=== PATIENT | male | born 1965 | race Caucasian/White ===

== ENCOUNTER 2018-02-21 20:51 | Inpatient (IN) | payer MEDICAID ==
--- NOTE | 2018-02-21 21:36 | C.PDOC ---
History Of Present Illness 52 y/o male presents to the ED complaining of feeling depressed. Also admits he felt suicidal this morning. Had plan to commit suicide by overdosing on heroin and cocaine, however did not attempt it. No other medical complaints at this time. On arrival patient appears calm and cooperative. Time Seen by Provider: 02/21/18 21:11 Chief Complaint (Nursing): Psychiatric Evaluation History Per: Patient History/Exam Limitations: no limitations Onset/Duration Of Symptoms: Hrs Current Symptoms Are (Timing): Still Present Suicide/Self Injury Attempted (Context): None Associated Symptoms: Depression, Suicidal Thoughts, Suicidal Plan Past Medical History Reviewed: Historical Data, Nursing Documentation, Vital Signs - Medical History PMH: Bipolar Disorder, Depression, Hepatitis Surgical History: No Surg Hx Family History: States: Unknown Family Hx - Social History Hx Tobacco Use: Yes Hx Alcohol Use: Yes Hx Substance Use: Yes - Immunization History Hx Tetanus Toxoid Vaccination: No Hx Influenza Vaccination: Yes Hx Pneumococcal Vaccination: No Review Of Systems Constitutional: Negative for: Fever, Chills Respiratory: Negative for: Shortness of Breath Gastrointestinal: Negative for: Vomiting, Abdominal Pain Psych: Positive for: Depression, Suicidal ideation (w/ plan) Physical Exam - Physical Exam Appears: Non-toxic, No Acute Distress Skin: Normal Color, Warm, Dry Head: Atraumatic, Normacephalic Eye(s): bilateral: Normal Inspection, PERRL, EOMI Oral Mucosa: Moist Neck: Normal ROM Chest: Symmetrical Cardiovascular: Rhythm Regular Respiratory: No Rales, No Rhonchi, No Wheezing Gastrointestinal/Abdominal: Soft, No Tenderness, No Distention Extremity: Bilateral: Atraumatic, Normal Color And Temperature Neurological/Psych: Oriented x3, Normal Speech ED Course And Treatment - Laboratory Results Result Diagrams: 02/21/18 21:37 02/21/18 21:37 Medical Decision Making Medical Decision Making: Initial Plan: --Bloodwork --UA, UDS --Placed on 1:1 obs --Awaiting crisis evaluation Patient is medically cleared Disposition - Disposition Disposition: HOSPITALIZED Disposition Time: 23:47 Condition: STABLE Forms: [facility] ([place]) - Clinical Impression Clinical Impression: Depression, Opiate addiction - Scribe Statement The provider has reviewed the documentation as recorded by the Alessandra Rojas Provider Attestation: All medical record entries made by the Miltonibkaren were at my direction and perso barbara dictated by me. I have reviewed the chart and agree that the record accurately reflects my personal performance of the history, physical exam, medical decision making, and the department course for this patient. I have also personally directed, reviewed, and agree with the discharge instructions and disposition. Decision To Admit - Pt Status Changed To: Hospital Disposition Of: Inpatient - Admit Certification Admit to Inpatient:: After my assessment, the patient will require hospitali zation for at least two midnights. This is because of the severity of symptoms shown, intensity of services needed, and/or the medical risk in this patient being treated as an outpatient. - InPatient: Physician Admission Certification: I certify that this patient requires 2 or more midnights of care for the following reason:: needs pysch - . Bed Request Type: Psychiatry Admitting Physician: Veronika Yi Patient Diagnosis: Depression, Opiate addiction
[2018-02-21 21:43] LABS: BASO % 0.3 % (0.0-2.0); EOS # 0.1 K/uL (0.0-0.7); EOS % 1.6 % (0.0-4.0); HEMOGLOBIN 13.4 g/dL (12.0-18.0); LYMPH # 1.5 K/uL (1.0-4.3); LYMPH % 17.2 % (20.0-40.0); MEAN CELL VOLUME 84.6 fL (80.0-94.0); MEAN CORPUSCULAR HEMOGLOBIN 29.2 pg (27.0-31.0); MEAN CORPUSCULAR HGB CONC 34.6 g/dL (33.0-37.0); MEAN PLATELET VOLUME 7.8 fL (7.2-11.7); MONO # 0.8 K/uL (0.0-0.8); MONO % 9.4 % (0.0-10.0); NEUT # 6.2 K/uL (1.8-7.0); NEUT % 71.5 % (50.0-75.0); RBC 4.59 Mil/uL (4.40-5.90); RED CELL DISTRIBUTION WIDTH 13.2 % (11.5-14.5); WHITE BLOOD COUNT 8.7 K/uL (4.8-10.8)
[2018-02-21 22:01] LABS: ACETAMINOPHEN < 10.0 ug/mL (10.0-30.0); ALB/GLOB RATIO 1.4 (1.0-2.1); ALBUMIN 4.3 g/dL (3.5-5.0); ALT/SGPT 47 U/L (21-72); AST/SGOT 35 U/L (17-59); BLOOD UREA NITROGEN 18 mg/dL (9-20); CALCIUM 9.4 mg/dl (8.6-10.4); GFR NON-AFRICAN AMERICAN > 60; SALICYLATE < 1.0 mg/dL 1
[2018-02-21] MEDS ORDERED: Potassium Chloride 20 mEq ER Tab PO STA (22:02)
[2018-02-21 22:43] LABS: SQUAMOUS EPITHIAL < 1 /hpf (0-5); URINE BILIRUBIN NEGATIVE (NEGATIVE); URINE BLOOD NEGATIVE (NEGATIVE); URINE CLARITY Clear (Clear); URINE COLOR Yellow (YELLOW); URINE GLUCOSE (UA) NORMAL (Normal); URINE LEUKOCYTE ESTERASE NEG Leu/uL (Negative); URINE PROTEIN NEGATIVE (NEGATIVE); URINE UROBILINOGEN NORMAL mg/dL (0.2-1.0)
[2018-02-21 22:51] LABS: BARBITURATES, UR NEGATIVE (NEGATIVE); BENZODIAZEPINES, UR NEGATIVE (NEGATIVE); PHENCYCLIDINE, UR NEGATIVE (NEGATIVE)
[2018-02-21 22:52] LABS: OPIATES, UR POSITIVE (NEGATIVE)
[2018-02-21] MEDS ORDERED: Potassium Chloride 20 mEq ER Tab PO ONE (23:20)
--- NOTE | 2018-02-22 01:37 | PCM.BM ---
<Bony Portillo - Last Filed: 02/22/18 01:34> Treatment Plan Problems - Problems identified on initial assessmt DEPRESSION Date Initiated: 02/22/18 Time Initiated: 01:00 Assessment reference: NA Status: Active SUBSTANCE ABUSE Date Initiated: 02/22/18 Time Initiated: 01:00 Assessment reference: NA Status: Active Treatment assets and liabiliti Patient Assests: adapts well, cooperative, self-reliant, ADL independent, physically healthy, negotiates basic needs Patient Liabilities: financial problems, poor support system, substance abuse, legal issue - Milieu Protocol Maintain good personal hygiene: daily Encourage regular showers, daily Remind patient to perform daily oral care, daily Assist patient to perform ADL's Maintain personal safety: every shift Educate patient to report safety concerns to staff, every shift Monitor environment for contraband/sharps Medication safety: Monitor for expected outcome, potential side effects: every shift, Assess barriers to learning: every shift, Assess readiness for medication education: every shift <Veronika Yi - Last Filed: 02/22/18 10:54> - Diagnosis (1) Mood disorder Status: Acute Interventions: 02/22/18 10:56 * Assess/adjust medications daily and /or as needed * See patient on an individual basis 7x/week to assess level of manic behaviors and stability * Discuss risks, benefits, side effects and alternatives of medications * (2) Opiate addiction Status: Acute Interventions: 02/22/18 10:56 * Assess 7x/week regarding severity of withdrawal * Educate regarding risks, benefits, side effects and alternatives of m edications * Use Motivational Interviewing for abstinence * Use CBT for relapse prevention * Medication management for withdrawal symptoms * Encourage medication assisted treatment * <Anastacia Groves - Last Filed: 02/22/18 11:28> Family Contact Family involvement: Famliy/SO not involved - Goals for Treatment Patient goals for treatment: "I don't know." Discharge/Continuing Care - Education Needs Education Needs: Patient Medication, Patient Coping Skills - Discharge Discharge Criteria: Tolerates medication w/o severe side effects, No longer exhibiting s/s of withdrawal, Reduction of target symptoms Discharge to:: Home - Treatment Team Participation Discussed with Family/SO: No Was Patient/Family/SO present at Treatment Team Meeting: Yes
[2018-02-22] MEDS ORDERED: Aluminum Hydroxide/Magnesium Hydroxide Susp (30 mL) PO PRN (10:23)
[2018-02-22] MEDS ORDERED: Benzocaine/Menthol (Cepacol) Lozenge PO PRN (10:23)
--- NOTE | 2018-02-22 10:23 | PCM.PSYCH ---
Initial Psychiatric Evaluation - Initial Psychiatric Evaluation Type of Admission: Voluntary Legal Status: Capacity Chief Complaint (in patient's own words): I was feeling increasingly depressed and suicidal.' History of Present Illness and Precipitating Events: Pt is a 52 year old male who is single and with one child who is 33 years old. 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 Pt lives in [place] with his friends. Pt came to [facility] complaining of feeling depressed and suicidal. Pt states that he used heroin and cocaine yesterday morning which resulted in a headache and suicidal ideations. He wanted to overdose but was on his last 4 bags of heroin which caused him to come in to the hospital. Pt uses 2 bundles of heroin a day by injection. He started when he was 27 years old but it became regular at 34 years old. He also uses 1g of cocaine a day. He started using cocaine 1 year ago but it became daily 3 months ago. His last use was the night before admission. Pt uses 2mg of Xanax twice a week. He has been taking benzodiazepines for 12 years and his last use was Sunday. Pt drinks 2-3 cans of beer or a pint of whiskey 3-4 times a week. His last drink was the night before admission. He has been smoking 1 pack of cigarettes a day since he was 17 years old. Pt denies being on methadone maintenance in the past and buys methadone off the street. Pt has undergone detoxification 3 times in the past and the last time was in 2014. He has been in rehabilitation 1 time in 2011. He was hospitalized for a psychiatric condition one time in 2008 for depression. His sleep and appetite are intact but he states he has lost interest in socializing and has been secluding himself for a few months. He has a little trouble concentrating and is feeling guilty but not to the point of being overwhelmed. Though he was suicidal yesterday he does not have suicidal ideations currently. He has had 2 suicide attempts in the past by overdose and the last one was in 2008. Pt denies having a plan currently but only when he is using drugs. Pt denies homicidal ideations or hallucinations. Pt has a history of bipolar disorder which was diagnosed in 2008. He describes a typical manic episode as having a lot of energy, being talkative, and wanting to do a lot of things like drawing. These episodes would last 2-3 days. He states that the withdrawal symptoms are beginning due to the yawning, watery eyes, and runny nose. Though he is not feeling them now he soon will feel fever, sweaty, vomiting, body aches, and anxiety. Past medical history: Hepatitis Allergies: Shellfish Surgical history: Denies Legal history: Incarcerated 3 times in the past Family psychiatric history: Denies Psychiatric history: Bipolar d/o, depressive d/o unspecified Current Medications: Active Medications Generic Name Dose Route Start Last Admin Trade Name Freq PRN Reason Stop Dose Admin Hydroxyzine HCl 50 mg 02/22/18 01:31 Atarax PO Q6 PRN Anxiety Nicotine 1 patch 02/22/18 10:00 Nicoderm Cq TD DAILY MARION Pneumococcal Polyvalent Vaccine 0.5 ml 02/23/18 10:00 Pneumovax 23 Vaccine IM 02/23/18 10:01 .ONCE ONE Trazodone HCl 50 mg 02/22/18 01:16 02/22/18 01:27 Desyrel PO 50 mg HS PRN Administration Sleep Past Psychiatric History - Past Psychiatric History Previous Treatment History: Inpatient Pertinent Medical Hx (Current Medical&Sleep Prob, Allergies): Allergies Allergy/AdvReac Type Severity Reaction Status Date / Time shellfish Allergy Uncoded 02/21/18 21:09 Sulfamethoxazole/Trimethoprim [Bactrim DS 800 mg-160 mg] 1 tab PO BID #14 tab 04/20/16 traMADol [Ultram] 50 mg PO Q8 #20 tab 04/20/16 Review of Systems - Review of Systems All systems: reviewed and no additional remarkable complaints except - Psychiatric Psychiatric: Anxiety, Irritability, Suicidal Ideation Mental Status Examination - Personal Presentation Personal Presentation: Looks stated age - Affect Affect: Constricted, Depressed - Motor Activity Motor Activity: Calm - Reliability in Providing Information Reliability in Providing Information: Fair - Speech Speech: Organized - Mood Mood: Depressed, Anxious - Formal Thought Process Formal Thought Process: No Impairment - Obsessions/Compulsions Obsessions: No Compulsions: No - Cognitive Functions Orientation: Person, Place, Situation, Time Sensorium: Alert Attention/Concentration: Attentive Abstract Thinking: Garner Estimate of Intelligence: Below average Judgement: Imparied, as evidence by: Poor judgement, Imparied, as evidence by: Lack of insight into illness - Risk Risk: Suicidal, Withdrawal, Diminished functioning - Limitations Limitations: Living alone DSM 5 DX - DSM 5 DSM 5 Diagnosis: Major depressive disorder recurrent severe without psychotic features Alcohol use disorder severe Opioid use disorder severe Opioid withdrawal - Recommended/Plan of Treatment Treatment Recommendations and Plan of Treatment: Major depressive disorder recurrent severe without psychotic features CBT Psychoeducation Supportive therapy, group therapy, individual therapy Cogentin 1 mg by mouth twice a day Trazodone 100 mg by mouth daily at bedtime Hydroxyzine 25 mg by mouth every 6 hours when necessary Gabapentin 100 mg po TID Remeron 15 mg PO QHS Alcohol use disorder severe CBT Psychoeducation Supportive therapy, individual therapy Use WA for abstinence Opioid use disorder severe CBT Psychoeducation Supportive therapy, individual therapy Use WA for abstinence Opioid withdrawal CBT Psychoeducation Supportive therapy, individual therapy Clonidine when necessary Methadone taper - Smoking Cessation Smoking Cessation Initiated: No
[2018-02-23] MEDS ORDERED: Pneumococcal 23-Valent Vaccine IM ONE (10:00)
[2018-02-24 07:26] VITALS: RESP 20; TEMP 98.7; O2SAT 99
[2018-02-24 15:52] VITALS: BP 139/86; PULSE 70
--- NOTE | 2018-02-25 05:28 | PCM.PYCHPN ---
Psychiatric Progress Note - Psychiatric Progress Note Patient seen today, length of contact: 16 MIN Patient Chief Complaint: I.M GOING TO LOSE MY JOB Problems Identified/Issues Discussed: PT SEEN AND EXAMINED DISCUSSED WITH STAFF D/W PT PROS AND CONS OF STAYING IN THE HOSPITAL AND SYMPTOMS OF WITHDRAWAL Medical Problems: NOTHING ACUTE Diagnostic Results: REVIEWED DSM 5 Symptoms Update: ANXIETY Medication Change: Yes (TAPER) Mental Status Examination - Cognitive Function Orientation: Person, Place, Situation, Time Memory: Intact Attention: Poor Concentration: Poor Association: WNL Fund of Knowledge: WNL - Mood Mood: Depressed, Anxious - Affect Affect: Constricted, Depressed - Speech Speech: Appropriate - Formal Thought Process Formal Thought Process: No Impairment - Suicidal Ideation Suicidal Ideation: No - Homicidal Ideation Homicidal Ideation: No Goal/Treatment Plan - Goal/Treatment Plan Need for Continued Stay: Remain at risks for inpatient hospitalization, Discharge may exacerbated symptoms Progress Toward Problem(s) and Goals/Treatment Plan: MDD CONSIDER USING CELEXA OPIOID WITHDRAWAL METHADONE TAPER IOPIOID USE DISORDER MD CBT GROUP MILIEU RECREATIONAL THERAPIES SUPPORTIVE PSYCHOTHERAPY - Smoking Cessation Smoking Cessation Initiated: Yes
== END 2018-02-24 16:10 | disposition home or self-care (01) | DRG 897 ==
LOC: C.ER 20:51 → C.5E 23:38
PROVIDERS: ADMIT Psychiatry & Neurology Psychiatry; ATTEND Psychiatry & Neurology Psychiatry
PROC: GZHZZZZ Group Psychotherapy (ICD-10-PCS; principal; 2018-02-21)
PROC: GZ56ZZZ Individual Psychotherapy, Supportive (ICD-10-PCS; 2018-02-21)
DX: F11.23 Opioid dependence with withdrawal (principal); F33.2 Major depressive disorder, recurrent severe without psychotic features; R45.851 Suicidal ideations; F31.9 Bipolar disorder, unspecified; F17.210 Nicotine dependence, cigarettes, uncomplicated; F41.9 Anxiety disorder, unspecified; F10.10 Alcohol abuse, uncomplicated; Y90.1 Blood alcohol level of 20-39 mg/100 ml

== ENCOUNTER 2018-03-06 15:14 | Inpatient (IN) | payer MEDICAID ==
[2018-03-06 15:23] VITALS: O2SAT 97
[2018-03-06 16:10] LABS: BASO % 0.3 % (0.0-2.0); EOS % 0.6 % (0.0-4.0); HEMOGLOBIN 14.9 g/dL (12.0-18.0); LYMPH % 12.2 % (20.0-40.0); MEAN CELL VOLUME 86.1 fL (80.0-94.0); MEAN CORPUSCULAR HEMOGLOBIN 29.1 pg (27.0-31.0); MEAN CORPUSCULAR HGB CONC 33.8 g/dL (33.0-37.0); MEAN PLATELET VOLUME 7.5 fL (7.2-11.7); MONO # 0.6 K/uL (0.0-0.8); MONO % 7.6 % (0.0-10.0); NEUT # 6.8 K/uL (1.8-7.0); NEUT % 79.3 % (50.0-75.0); RBC 5.12 Mil/uL (4.40-5.90); WHITE BLOOD COUNT 8.5 K/uL (4.8-10.8)
[2018-03-06 16:19] LABS: SQUAMOUS EPITHIAL < 1 /hpf (0-5); URINE BACTERIA RARE (<OCC); URINE BILIRUBIN 1+ (NEGATIVE); URINE BLOOD NEGATIVE (NEGATIVE); URINE CALCIUM OXALATE CRYSTALS FEW /hpf (<OCC); URINE CLARITY Clear (Clear); URINE COLOR Amber (YELLOW); URINE GLUCOSE (UA) NORMAL (Normal); URINE LEUKOCYTE ESTERASE NEG Leu/uL (Negative); URINE PROTEIN 1+ mg/dL (NEGATIVE)
[2018-03-06 16:31] LABS: ALB/GLOB RATIO 1.5 (1.0-2.1); ALT/SGPT 49 U/L (21-72); AST/SGOT 41 U/L (17-59); BLOOD UREA NITROGEN 21 mg/dL (9-20); CALCIUM 9.6 mg/dl (8.6-10.4); GFR NON-AFRICAN AMERICAN > 60
[2018-03-06 16:39] LABS: BARBITURATES, UR NEGATIVE (NEGATIVE); BENZODIAZEPINES, UR NEGATIVE (NEGATIVE); PHENCYCLIDINE, UR NEGATIVE (NEGATIVE)
[2018-03-06 16:40] LABS: OPIATES, UR POSITIVE (NEGATIVE)
--- NOTE | 2018-03-06 18:01 | C.PDOC ---
History Of Present Illness 52 year old male presents to the ED for psychiatric evaluation. Patient states he is depressed and tried overdosing on pills last night. He denies homicidal ideation. Time Seen by Provider: 03/06/18 15:29 Chief Complaint (Nursing): Psychiatric Evaluation History Per: Patient History/Exam Limitations: no limitations Onset/Duration Of Symptoms: Days Current Symptoms Are (Timing): Still Present Suicide/Self Injury Attempted (Context): None Associated Symptoms: Depression, Suicidal Thoughts, Suicidal Plan Involuntary Hold By: None Recent travel outside of the [place]: No Additional History Per: Patient Past Medical History Reviewed: Historical Data, Nursing Documentation, Vital Signs Vital Signs: Last Vital Signs Temp 97.6 F 03/06/18 15:19 Pulse 73 03/06/18 15:19 Resp 18 03/06/18 15:19 BP 142/81 03/06/18 15:19 Pulse Ox 97 03/06/18 15:19 - Medical History PMH: Bipolar Disorder, Depression, Hepatitis (C) Denies: Diabetes, HIV, HTN, Chronic Kidney Disease, Seizures, Sexually Transm itted Disease Surgical History: No Surg Hx - [facility] GROUP PSYCHOTHERAPY (02/21/18) INDIVIDUAL PSYCHOTHERAPY, SUPPORTIVE (02/21/18) Family History: States: Unknown Family Hx - Social History Hx Tobacco Use: Yes Hx Alcohol Use: Yes Hx Substance Use: Yes - Immunization History Hx Tetanus Toxoid Vaccination: No Hx Influenza Vaccination: Yes Hx Pneumococcal Vaccination: No Review Of Systems Psych: Positive for: Depression, Suicidal ideation Physical Exam - Physical Exam Appears: Non-toxic, No Acute Distress Skin: Normal Color, Warm, Dry Head: Atraumatic, Normacephalic Eye(s): bilateral: Normal Inspection Oral Mucosa: Moist Neck: Supple Chest: Symmetrical, No Deformity, No Tenderness Cardiovascular: Rhythm Regular, No Murmur Respiratory: Normal Breath Sounds, No Accessory Muscle Use Extremity: Normal ROM Neurological/Psych: Oriented x3, Normal Speech, Normal Cognition ED Course And Treatment - Laboratory Results Result Diagrams: 03/06/18 16:03 03/06/18 16:03 O2 Sat by Pulse Oximetry: 97 (on RA) Pulse Ox Interpretation: Normal Medical Decision Making Medical Decision Making: Progress: Bloodwork and UA ordered and reviewed. Patient accepted for admission by Dr. Arriaza. Disposition Discussed With : Thaddeus Arriaza Doctor Will See Patient In The: Hospital Counseled Patient/Family Regarding: Studies Performed, Diagnosis - Disposition Disposition: HOSPITALIZED Disposition Time: 18:01 Condition: FAIR - Clinical Impression Clinical Impression: Substance abuse, Depression - Scribe Statement The provider has reviewed the documentation as recorded by the Scribe (Natali Ellis) Provider Attestation: All medical record entries made by the Scribe were at my direction and personally dictated by me. I have reviewed the chart and agree that the record accurately reflects my personal performance of the history, physical exam, medical decision making, and the department course for this patient. I have also personally directed, reviewed, and agree with the discharge instructions and disposition.
--- NOTE | 2018-03-06 18:25 | PCM.BM ---
<Narayan Funez - Last Filed: 03/06/18 18:18> Treatment Plan Problems - Problems identified on initial assessmt Depression Date Initiated: 03/06/18 Time Initiated: 18:18 Assessment reference: NA Status: Active Substance Abuse Date Initiated: 03/06/18 Time Initiated: 18:18 Assessment reference: NA Status: Referred Comment: Opiates, +Methadone, + Cocaine Treatment assets and liabiliti Patient Assests: adapts well, cooperative, self-reliant, ADL independent, physically healthy, negotiates basic needs Patient Liabilities: live alone (Rooming house), financial problems (Unemployed), substance abuse (Opiates, +Methadone, + Cocaine) - Milieu Protocol Maintain good personal hygiene: daily Encourage regular showers, daily Remind patient to perform daily oral care, every shift Assist patient to perform ADL's Conduct patient checks and document Observation sheet: Q15 minutes (For safety) Maintain personal safety: every shift Educate patient to report safety concerns to staff, every shift Monitor environment for contraband/sharps Medication safety: Monitor for expected outcome, potential side effects: every shift, Assess barriers to learning: every shift, Assess readiness for medication education: every shift <Anastacia Groves - Last Filed: 03/08/18 11:19> Family Contact Family involvement: Famliy/SO not involved - Goals for Treatment Patient goals for treatment: "I want to leave." Discharge/Continuing Care - Education Needs Education Needs: Patient Medication, Patient Coping Skills - Discharge Discharge Criteria: Tolerates medication w/o severe side effects, No longer exhibiting s/s of withdrawal, Reduction of target symptoms Discharge to:: Other - Treatment Team Participation Discussed with Family/SO: No Was Patient/Family/SO present at Treatment Team Meeting: Yes (Pt refused to sign treatment plan and signed out AMA.)
[2018-03-06] MEDS ORDERED: Aluminum Hydroxide/Magnesium Hydroxide Susp (30 mL) PO PRN (23:18)
--- NOTE | 2018-03-07 15:11 | PCM.PSYCH ---
Initial Psychiatric Evaluation - Initial Psychiatric Evaluation Type of Admission: Voluntary Legal Status: Capacity Current Medications: Active Medications Generic Name Dose Route Start Last Admin Trade Name Freq PRN Reason Stop Dose Admin Al Hydrox/Mg Hydrox/Simethicone 30 ml 03/06/18 23:18 Maalox 30 Ml PO TID PRN Indigestion / Heartburn Clonidine HCl 0.1 mg 03/06/18 23:18 Catapres PO Q4 PRN COWS Score More or Equal to 5 Hydroxyzine HCl 50 mg 03/06/18 23:20 Atarax PO Q6H PRN Anxiety Ibuprofen 600 mg 03/06/18 23:20 Motrin Tab PO Q6H PRN Pain, moderate (4-7) Loperamide HCl 2 mg 03/06/18 23:18 Imodium PO Q8 PRN Diarrhea Mirtazapine 15 mg 03/06/18 23:30 03/07/18 00:22 Remeron PO Not Given HS MARION Ondansetron HCl 4 mg 03/06/18 23:18 Zofran Tab PO Q8 PRN Nausea/Vomiting Pneumococcal Polyvalent Vaccine 0.5 ml 03/08/18 10:00 Pneumovax 23 Vaccine IM 03/08/18 10:01 .ONCE ONE Trazodone HCl 100 mg 03/06/18 23:20 Desyrel PO HS PRN Insomnia Past Psychiatric History - Past Psychiatric History Pertinent Medical Hx (Current Medical&Sleep Prob, Allergies): Allergies Allergy/AdvReac Type Severity Reaction Status Date / Time shellfish Allergy Uncoded 02/21/18 21:09 No Known Home Med 03/06/18
[2018-03-08 06:35] VITALS: BP 136/69; PULSE 46; RESP 18; TEMP 98.6
[2018-03-08] MEDS ORDERED: Pneumococcal 23-Valent Vaccine IM ONE (10:00)
== END 2018-03-08 11:00 | disposition left against medical advice (07) | DRG 754 ==
LOC: C.ER 15:14 → C.5E 18:00
PROVIDERS: ADMIT Psychiatry & Neurology Psychiatry; ATTEND Psychiatry & Neurology Psychiatry
DX: F32.9 Major depressive disorder, single episode, unspecified (principal); Z87.891 Personal history of nicotine dependence

== ENCOUNTER 2018-03-19 17:41 | Inpatient (IN) | payer MEDICAID, OTHER ==
[2018-03-19 18:39] LABS: BASO % 0.5 % (0.0-2.0); EOS # 0.1 K/uL (0.0-0.7); EOS % 1.1 % (0.0-4.0); HEMOGLOBIN 14.7 g/dL (12.0-18.0); LYMPH # 1.3 K/uL (1.0-4.3); LYMPH % 17.7 % (20.0-40.0); MEAN CELL VOLUME 85.4 fL (80.0-94.0); MEAN CORPUSCULAR HEMOGLOBIN 29.3 pg (27.0-31.0); MEAN CORPUSCULAR HGB CONC 34.4 g/dL (33.0-37.0); MEAN PLATELET VOLUME 6.8 fL (7.2-11.7); MONO # 0.6 K/uL (0.0-0.8); MONO % 8.1 % (0.0-10.0); NEUT # 5.5 K/uL (1.8-7.0); NEUT % 72.6 % (50.0-75.0); RBC 5.01 Mil/uL (4.40-5.90); RED CELL DISTRIBUTION WIDTH 13.5 % (11.5-14.5); WHITE BLOOD COUNT 7.6 K/uL (4.8-10.8)
[2018-03-19 18:49] LABS: ACETAMINOPHEN < 10.0 ug/mL (10.0-30.0); SALICYLATE < 1.0 mg/dL 1
[2018-03-19 18:53] LABS: SQUAMOUS EPITHIAL < 1 /hpf (0-5); URINE BACTERIA RARE (<OCC); URINE BILIRUBIN NEGATIVE (NEGATIVE); URINE BLOOD NEGATIVE (NEGATIVE); URINE CLARITY Clear (Clear); URINE COLOR Yellow (YELLOW); URINE GLUCOSE (UA) NORMAL (Normal); URINE LEUKOCYTE ESTERASE NEG Leu/uL (Negative); URINE PROTEIN NEGATIVE (NEGATIVE); URINE UROBILINOGEN NORMAL mg/dL (0.2-1.0)
[2018-03-19 19:04] LABS: BARBITURATES, UR NEGATIVE (NEGATIVE); PHENCYCLIDINE, UR NEGATIVE (NEGATIVE)
[2018-03-19 19:10] LABS: BLOOD UREA NITROGEN 14 mg/dL (9-20); GFR NON-AFRICAN AMERICAN > 60
[2018-03-19 19:11] LABS: ALB/GLOB RATIO 1.3 (1.0-2.1); ALBUMIN 4.6 g/dL (3.5-5.0); ALT/SGPT 70 U/L (21-72); AST/SGOT 50 U/L (17-59); CALCIUM 9.4 mg/dl (8.6-10.4)
[2018-03-19 19:13] LABS: BENZODIAZEPINES, UR POSITIVE (NEGATIVE)
[2018-03-19 19:14] LABS: OPIATES, UR POSITIVE (NEGATIVE)
--- NOTE | 2018-03-19 20:18 | C.PDOC ---
History Of Present Illness 52 year old male presents to the ER with depression and suicidal ideation. Patient has a Hx of polysubstance abuse, depression, and hepatitis c, reporting suicidal ideation with specific plan to OD on his medications. Patient has a Hx of prior suicide attempts. Patient also reports recent use of heroin. Denies homicidal ideation or hallucinations. PMHx: Hepatitis c, Bipolar Disorder, Depression Time Seen by Provider: 03/19/18 18:12 Chief Complaint (Nursing): Psychiatric Evaluation History Per: Patient History/Exam Limitations: no limitations Onset/Duration Of Symptoms: Days Current Symptoms Are (Timing): Still Present Suicide/Self Injury Attempted (Context): None Modifying Factor(s): Other (Heroin) Associated Symptoms: Suicidal Plan (OD on medications) Involuntary Hold By: None Recent travel outside of the [place]: No Additional History Per: Prior Records Past Medical History Reviewed: Historical Data, Nursing Documentation, Vital Signs Vital Signs: Last Vital Signs Temp 98.3 F 03/19/18 17:50 Pulse 78 03/19/18 17:50 Resp 18 03/19/18 17:50 BP 153/88 H 03/19/18 17:50 Pulse Ox 97 03/19/18 17:50 - Medical History PMH: Bipolar Disorder, Depression, Hepatitis (C) Denies: Diabetes, HIV, HTN, Chronic Kidney Disease, Seizures, Sexually Transmitted Disease - [facility] GROUP PSYCHOTHERAPY (02/21/18) INDIVIDUAL PSYCHOTHERAPY, SUPPORTIVE (02/21/18) Family History: States: Unknown Family Hx - Social History Hx Tobacco Use: Yes Hx Alcohol Use: Yes Hx Substance Use: Yes - Immunization History Hx Tetanus Toxoid Vaccination: No Hx Influenza Vaccination: Yes Hx Pneumococcal Vaccination: Yes Review Of Systems Except As Marked, All Systems Reviewed And Found Negative. Psych: Positive for: Suicidal ideation Physical Exam - Physical Exam Appears: No Acute Distress, Other (Depressed mood and affect) Skin: Warm Head: Atraumatic, Normacephalic Eye(s): bilateral: PERRL, EOMI Nose: Normal Lips: Normal Appearing Neck: Normal ROM, Trachea Midline Chest: Symmetrical Cardiovascular: Rhythm Regular, No Murmur Respiratory: Normal Breath Sounds, No Accessory Muscle Use Gastrointestinal/Abdominal: Soft, No Tenderness Back: Normal Inspection, No Decreased ROM Extremity: Normal ROM, No Deformity Neurological/Psych: Oriented x3, Normal Speech ED Course And Treatment - Laboratory Results Result Diagrams: 03/19/18 18:33 03/19/18 18:33 ECG: Interpreted By Me, Viewed By Me ECG Rhythm: Sinus Bradycardia ECG Interpretation: Normal Interpretation Of ECG: Normal QRS and normal ST segments. Rate From EC O2 Sat by Pulse Oximetry: 97 (Room air) Pulse Ox Interpretation: Normal Medical Decision Making Medical Decision Making: Impression: Depression and suicidal ideation Crisis evaluation for possible admission UDS demonstrate polysubstance abuse, otherwise no clinically significant abn ormalities Medically stable for psych admission if needed Patient to be admitted under Dr. Amaya for depression and opiate abuse disorder Disposition - Disposition Disposition: HOSPITALIZED Disposition Time: 17:00 Condition: STABLE - Clinical Impression Clinical Impression: Depression, Substance abuse - Scribe Statement The provider has reviewed the documentation as recorded by the Scribe Hernesto Belle All medical record entries made by the Scribe were at my direction and personally dictated by me. I have reviewed the chart and agree that the record accurately reflects my personal performance of the history, physical exam, medical decision making, and the department course for this patient. I have also personally directed, reviewed, and agree with the discharge instructions and disposition.
--- NOTE | 2018-03-19 22:49 | PCM.BM ---
<Rufino Brizuela - Last Filed: 03/19/18 22:48> Treatment Plan Problems - Problems identified on initial assessmt Depression Date Initiated: 03/19/18 Time Initiated: 21:20 Assessment reference: NA Status: Active Suicidal Ideation Date Initiated: 03/19/18 Time Initiated: 21:20 Assessment reference: NA Status: Monitor Treatment assets and liabiliti Patient Assests: adapts well, cooperative, self-reliant, ADL independent, physically healthy, negotiates basic needs Patient Liabilities: substance abuse (Heroin, Cocaine, Xanax), medical problems (Hepatitis C) - Milieu Protocol Maintain good personal hygiene: daily Encourage regular showers, daily Remind patient to perform daily oral care, every shift Assist patient to perform ADL's Conduct patient checks and document Observation sheet: Q15 minutes Maintain personal safety: every shift Educate patient to report safety concerns to staff, every shift Monitor environment for contraband/sharps Medication safety: Monitor for expected outcome, potential side effects: every shift, Assess barriers to learning: every shift, Assess readiness for medication education: every shift <Chiquis Knowles - Last Filed: 03/20/18 15:10> Family Contact Family involvement: Patient does not wish Family/SO involvement Family contact: Patient declines to allow family contact at present - Goals for Treatment Patient goals for treatment: "I want to go to a short-term rehab." Discharge/Continuing Care - Education Needs Education Needs: Patient Medication, Patient Diagnosis/Disease Process, Patient Coping Skills, Patient Placement options, Patient Community resources - Discharge Discharge Criteria: Free of Suicidal thoughts, Normal sleep pattern, Ability to care for self, No longer exhibiting s/s of withdrawal, Reduction of target symptoms Discharge to:: Substance Abuse Rehab - Treatment Team Participation Discussed with Family/SO: No Was Patient/Family/SO present at Treatment Team Meeting: Yes <Veronika Yi - Last Filed: 03/25/18 12:45> - Diagnosis (1) Bipolar disorder Status: Acute Interventions: 03/25/18 12:45 * Assess/adjust medications daily and /or as needed * See patient on an individual basis 7x/week to assess level of manic behaviors and stability * Discuss risks, benefits, side effects and alternatives of medications * (2) Opiate addiction Status: Acute Interventions: 03/25/18 12:45 * Assess 7x/week regarding severity of withdrawal * Educate regarding risks, benefits, side effects and alternatives of medications * Use Motivational Interviewing for abstinence * Use CBT for relapse prevention * Medication management for withdrawal symptoms * Encourage medication assisted treatment *
[2018-03-19 23:51] VITALS: O2SAT 97
--- NOTE | 2018-03-20 09:16 | RAD ---
Chest x-ray single frontal view HISTORY: Depression. COMPARISON: None available. Findings: No focal infiltrate or effusion. Mild linear atelectasis at the left lung base. Additional linear opacities at both lung bases may represent prominent vasculature. Heart size within normal limits. Impression: No focal infiltrate or effusion. Mild linear atelectasis at the left lung base.
[2018-03-20] MEDS ORDERED: Aluminum Hydroxide/Magnesium Hydroxide Susp (30 mL) PO PRN (10:44)
--- NOTE | 2018-03-20 10:44 | PCM.PSYCH ---
Initial Psychiatric Evaluation - Initial Psychiatric Evaluation Type of Admission: Voluntary Legal Status: Capacity Chief Complaint (in patient's own words): I was feeling depressed and suicidal. History of Present Illness and Precipitating Events: Patient Garfield is a 52 year old male who is single, lives by himself, and is unemployed, presented to the hospital yesterday because of depressed mood and suicidal ideation. Patient reports history of depression, opioid abuse and cocaine abuse. He reports history of few inpatient psychiatric hospitalizations. He reports that soon after discharge from the [facility], the last time, he relapsed on heroin and cocaine. He states that he currently feels depressed, and feels like hurting himself. He tried to kill himself through overdose 2 days ago. He says that he feels weak, guilty, less active, and has lost interest in the things he used to enjoy. He denies having problems with sleep or appetite. He denies hearing voices or having visual hallucinations. He says he occasionally has racing thoughts, irritability, agitation and flight of ideas. He currently does 20 bags of heroin a day and 5 g of cocaine a day. He occasionally abuses Xanax, taking roughly 3-4 pills a week. He reports withdrawal symptoms including nausea, vomiting, abdominal cramps, sweats, headaches and joint pains. He denies any auditory hallucinations or any paranoia. Past Psych History: Bipolar Disorder Past Family Psych History: Sister had substance abuse problem. Past Medical History: Hep C Current Medications: Active Medications Generic Name Dose Route Start Last Admin Trade Name Freq PRN Reason Stop Dose Admin Hydroxyzine HCl 25 mg 03/19/18 22:33 Atarax PO Q6H PRN Anxiety Influenza Virus Vaccine 60 mcg 03/22/18 10:00 Fluzone Quad [id number] IM 03/22/18 10:01 .ONCE ONE Pneumococcal Polyvalent Vaccine 0.5 ml 03/22/18 10:00 Pneumovax 23 Vaccine IM 03/22/18 10:01 .ONCE ONE Trazodone HCl 100 mg 03/19/18 22:45 03/19/18 23:13 Desyrel PO Not Given HS [facility] Past Psychiatric History - Past Psychiatric History Previous Treatment History: Inpatient Pertinent Medical Hx (Current Medical&Sleep Prob, Allergies): Allergies Allergy/AdvReac Type Severity Reaction Status Date / Time shellfish Allergy Uncoded 02/21/18 21:09 No Known Home Med 03/06/18 Review of Systems - Review of Systems All systems: reviewed and no additional remarkable complaints except - Psychiatric Psychiatric: Anxiety, Irritability, Mood Swings, Suicidal Ideation Mental Status Examination - Personal Presentation Personal Presentation: Looks stated age - Affect Affect: Broad - Motor Activity Motor Activity: Calm - Reliability in Providing Information Reliability in Providing Information: Fair - Speech Speech: Organized - Mood Mood: Depressed, Anxious - Formal Thought Process Formal Thought Process: Flight of ideas - Obsessions/Compulsions Obsessions: No Compulsions: No - Cognitive Functions Orientation: Person, Place, Situation, Time Sensorium: Alert Attention/Concentration: Attentive Abstract Thinking: [place] Estimate of Intelligence: Below average Judgement: Imparied, as evidence by: Poor judgement, Imparied, as evidence by: Lack of insight into illness - Risk Risk: Suicidal, Withdrawal, Diminished functioning - Limitations Limitations: Living alone DSM 5 DX - DSM 5 DSM 5 Diagnosis: Bipolar disorder mixed severe without psychotic features Opioid use disorder severe Opioid withdrawal Cocaine use disorder severe Sedated/hypnotic use disorder moderate - Recommended/Plan of Treatment Treatment Recommendations and Plan of Treatment: Bipolar disorder mixed severe without psychotic features Opioid use disorder severe Opioid withdrawal Cocaine use disorder severe Sedated/hypnotic use disorder moderate CBT Psychoeducation Supportive therapy, individual therapy, group therapy Depakote 250 mg p.o. twice daily Discontinue Paxil 10 mg p.o. daily Trazodone 50 mg p.o. nightly Hydroxyzine 25 mg p.o. every 6 hours as needed Methadone taper Clonidine as needed Neurontin 300 mg p.o. 3 times daily PRN medications for heroin withdrawal. - Smoking Cessation Smoking Cessation Initiated: No
--- NOTE | 2018-03-20 11:45 | CARD ---
APPROVED REPORT Date of service: 03/19/2018 EKG Measurement Heart [id number] <Conclusion> Sinus bradycardia Otherwise normal ECG
[2018-03-20] MEDS: Divalproex 250 mg DR Tab PO SCH (18:55)
[2018-03-21] MEDS: Divalproex 250 mg DR Tab PO SCH ×2 (09:58→17:08)
--- NOTE | 2018-03-21 16:06 | PCM.PYCHPN ---
Psychiatric Progress Note - Psychiatric Progress Note Patient seen today, length of contact: 15 min Patient Chief Complaint: I am still withdrawing from heroin. Problems Identified/Issues Discussed: Patient was seen and evaluated, chart reviewed and discussed with the staff. Patient still reports of irritability, agitation and racing thoughts. He at times reports depressed mood, poor sleep and poor appetite. Patient reports withdrawal symptoms including nausea, cramps, joint pains and sweating. He denies any auditory hallucinations or any paranoia. He is taking medication and denies any side effects. Supportive therapy was given. Medication Change: Yes Medical Record Reviewed: Yes Mental Status Examination - Cognitive Function Orientation: Person, Place, Situation, Time Memory: Intact Attention: WNL Concentration: Poor Association: WNL Fund of Knowledge: Poor - Mood Mood: Depressed, Anxious - Affect Affect: Broad - Speech Speech: Soft - Formal Thought Process Formal Thought Process: Flight of ideas - Suicidal Ideation Suicidal Ideation: No - Homicidal Ideation Homicidal Ideation: No Goal/Treatment Plan - Goal/Treatment Plan Need for Continued Stay: Severe depression anxiety, Severe functional impairment Progress Toward Problem(s) and Goals/Treatment Plan: Bipolar disorder mixed severe without psychotic features Opioid use disorder severe Opioid withdrawal Cocaine use disorder severe Sedated/hypnotic use disorder moderate CBT Psychoeducation Supportive therapy, individual therapy, group therapy Depakote 250 mg p.o. twice daily Trazodone 50 mg p.o. nightly Hydroxyzine 25 mg p.o. every 6 hours as needed Methadone taper Clonidine as needed Neurontin 300 mg p.o. 3 times daily PRN medications for heroin withdrawal. - Smoking Cessation Smoking Cessation Initiated: No
[2018-03-22] MEDS: Divalproex 250 mg DR Tab PO SCH ×2 (09:29→17:28)
[2018-03-22] MEDS ORDERED: Influenza Vaccine 60 MCG/0.5 ML SYR (3 yr & up) IM ONE (10:00)
[2018-03-22] MEDS ORDERED: Pneumococcal 23-Valent Vaccine IM ONE (10:00)
[2018-03-23] MEDS: Divalproex 250 mg DR Tab PO SCH ×2 (10:42→17:32)
--- NOTE | 2018-03-23 13:09 | PCM.PYCHPN ---
Psychiatric Progress Note - Psychiatric Progress Note Patient seen today, length of contact: 15 min Patient Chief Complaint: I am feeling much better. Problems Identified/Issues Discussed: Patient seen, chart reviewed, case discussed with the staff. Issues related to illness and treatment were discussed with the patient and staff. Reported compliant with treatment with no adverse effects. Tolerating treatment very well. Patient reported feeling much better. Awake, alert and oriented 3. Calm and more cooperative. Mood reported as okay. Affect appropriate. Treatment discussed with the patient. Needs more time for stabilization. Aftercare discussed with the patient. Denied any delusions, auditory or visual hallucinations, suicidal ideations or homicidal ideations at the time of evaluation. Medical Problems: Hepatitis Diagnostic Results: Reviewed DSM 5 Symptoms Update: Improvement with treatment Medication Change: No Medical Record Reviewed: Yes Mental Status Examination - Cognitive Function Orientation: Person, Place, Situation, Time Memory: Intact Attention: WNL Concentration: WNL Association: [facility] Fund of Knowledge: [facility] Decription of patient's judgement and insights: Fair - Mood Mood: Neutral - Affect Affect: Other (Appropriate) - Speech Speech: Soft - Formal Thought Process Formal Thought Process: No Impairment Psychotic Thoughts and Behaviors: None - Suicidal Ideation Suicidal Ideation: No - Homicidal Ideation Homicidal Ideation: No Goal/Treatment Plan - Goal/Treatment Plan Need for Continued Stay: Remain at risks for inpatient hospitalization, Disch arge may exacerbated symptoms, Severe functional impairment Progress Toward Problem(s) and Goals/Treatment Plan: Improving with treatment. Patient education. Supportive therapy. CBT for relapse prevention. [place] for abstinence. Continue treatment as before. Patient wants to go to rehab for follow-up care after discharge from the hospital for Estimated Date of D/C: 03/26/18 - Smoking Cessation Smoking Cessation Initiated: No
[2018-03-24 06:56] VITALS: RESP 18; TEMP 97.3
[2018-03-24] MEDS: Divalproex 250 mg DR Tab PO SCH ×2 (10:27→17:30)
--- NOTE | 2018-03-24 23:32 | PCM.PYCHPN ---
Psychiatric Progress Note - Psychiatric Progress Note Patient seen today, length of contact: 15 min Patient Chief Complaint: I am feeling much better. Problems Identified/Issues Discussed: Patient seen, chart reviewed, case discussed with the staff. Issues related to illness and treatment were discussed with the patient and staff. Reported compliant with treatment with no adverse effects. Tolerating treatment very well. Patient reported feeling much better. Awake, alert and oriented 3. Calm and more cooperative. Mood reported as okay. Affect appropriate. Treatment discussed with the patient. Needs more time for stabilization. Aftercare discussed with the patient. Denied any delusions, auditory or visual hallucinations, suicidal ideations or homicidal ideations at the time of evaluation. Medical Problems: Hepatitis Diagnostic Results: Reviewed Medication Change: No Medical Record Reviewed: Yes Mental Status Examination - Cognitive Function Orientation: Person, Place, Situation, Time Memory: Intact Attention: WNL Concentration: WNL Association: WN Fund of Knowledge: [facility] Decription of patient's judgement and insights: Fair - Mood Mood: Neutral - Affect Affect: Other (Appropriate) - Speech Speech: Soft - Formal Thought Process Formal Thought Process: No Impairment Psychotic Thoughts and Behaviors: None - Suicidal Ideation Suicidal Ideation: No - Homicidal Ideation Homicidal Ideation: No Goal/Treatment Plan - Goal/Treatment Plan Need for Continued Stay: Remain at risks for inpatient hospitalization, Discharge may exacerbated symptoms, Severe functional impairment Progress Toward Problem(s) and Goals/Treatment Plan: Improving with treatment. Patient education. Supportive therapy. CBT for relapse prevention. [place] for abstinence. Continue treatment as before. Patient wants to go to rehab for follow-up care after discharge from the hospital for Estimated Date of D/C: 03/26/18
[2018-03-25] MEDS: Divalproex 250 mg DR Tab PO SCH ×2 (10:17→17:59)
--- NOTE | 2018-03-25 12:44 | PCM.PYCHPN ---
Psychiatric Progress Note - Psychiatric Progress Note Patient seen today, length of contact: 15 min Patient Chief Complaint: I am still withdrawing from heroin. Problems Identified/Issues Discussed: Patient was seen and evaluated, chart reviewed and discussed with the staff. Patient still reports of irritability, agitation and racing thoughts. He at times reports depressed mood, poor sleep and poor appetite. Patient reports withdrawal symptoms including nausea, cramps, joint pains and sweating. He denies any auditory hallucinations or any paranoia. He is taking medication and denies any side effects. Supportive therapy was given. Medication Change: No Medical Record Reviewed: Yes Mental Status Examination - Cognitive Function Orientation: Person, Place, Situation, Time Memory: Intact Attention: WNL Concentration: WNL Association: WNL Fund of Knowledge: WNL - Mood Mood: Neutral - Affect Affect: Other (Appropriate) - Speech Speech: Soft - Formal Thought Process Formal Thought Process: No Impairment - Suicidal Ideation Suicidal Ideation: No - Homicidal Ideation Homicidal Ideation: No Goal/Treatment Plan - Goal/Treatment Plan Need for Continued Stay: Remain at risks for inpatient hospitalization, Discharge may exacerbated symptoms, Severe functional impairment Progress Toward Problem(s) and Goals/Treatment Plan: Bipolar disorder mixed severe without psychotic features Opioid use disorder severe Opioid withdrawal Cocaine use disorder severe Sedated/hypnotic use disorder moderate CBT Psychoeducation Supportive therapy, individual therapy, group therapy Depakote 250 mg p.o. twice daily Trazodone 50 mg p.o. nightly Hydroxyzine 25 mg p.o. every 6 hours as needed Methadone taper Clonidine as needed Neurontin 300 mg p.o. 3 times daily PRN medications for heroin withdrawal. Estimated Date of D/C: 03/26/18
[2018-03-25 15:36] LABS: BARBITURATES, UR NEGATIVE (NEGATIVE); BENZODIAZEPINES, UR NEGATIVE (NEGATIVE); OPIATES, UR NEGATIVE (NEGATIVE); PHENCYCLIDINE, UR NEGATIVE (NEGATIVE)
[2018-03-25 16:21] VITALS: BP 117/69; PULSE 53
[2018-03-26] MEDS: Divalproex 250 mg DR Tab PO SCH (09:16)
--- NOTE | 2018-03-26 10:22 | PCM.PYCHDC ---
Mental Status Examination - Mental Status Examination Orientation: Person, Place, Situation, Time Memory: Intact Mood: Neutral Affect: Constricted Speech: Soft Attention: WNL Concentration: WNL Association: WNL Fund of Knowledge: WNL Formal Thought Process: No Impairment Description of patient's judgement and insight: good, fair Psychotic Thoughts and Behaviors: denies any AVH Suicidal Ideation: No Current Homicidal Ideation?: No Discharge Summary - Discharge Note Reason for Hospitalization: Patient Garfield is a 52 year old male who is single, lives by himself, and is unemployed, presented to the hospital yesterday because of depressed mood and suicidal ideation. Patient reports history of depression, opioid abuse and cocaine abuse. He reports history of few inpatient psychiatric hospitalizations. He reports that soon after discharge from the [facility], the last time, he relapsed on heroin and cocaine. He states that he currently feels depressed, and feels like hurting himself. He tried to kill himself through overdose 2 days ago. He says that he feels weak, guilty, less active, and has lost interest in the things he used to enjoy. He denies having problems with sleep or appetite. He denies hearing voices or having visual hallucinations. He says he occasionally has racing thoughts, irritability, agitation and flight of ideas. He currently does 20 bags of heroin a day and 5 g of cocaine a day. He occasionally abuses Xanax, taking roughly 3-4 pills a week. He reports withdrawal symptoms including nausea, vomiting, abdominal cramps, sweats, headaches and joint pains. He denies any auditory hallucinations or any paranoia. Laboratory Data: Abnormal Lab Results 03/25/18 15:12 Urine Opiates Screen Negative Urine Methadone Screen Negative Ur Barbiturates Screen Negative Ur Phencyclidine Scrn Negative Ur Amphetamines Screen Negative U Benzodiazepines Scrn Negative U Oth Cocaine Metabols Negative U Cannabinoids Screen Negative Consultations:: List each consultation separately and include: 1. Reason for request. 2. Findings. 3. Follow-up Summary of Hospital Course include:: 1. Description of specific treatment plan utilized for patients during their course of treatmen. 2. Summarize the time- course for resolution of acute symptoms and/or regressed behaviors. 3. Describe issues identified and worked on during hospitalization. 4. Describe medication utilized. 5. Describe medical problems identified and treated. 6. Reassessment of suicide risk Summary of Hospital Course: Patient Garfield is a 52 year old male who is single, lives by himself, and is unemployed, presented to the hospital yesterday because of depressed mood and suicidal ideation. Patient reports history of depression, opioid abuse and cocaine abuse. He reports history of few inpatient psychiatric hospitalizations. He reports that soon after discharge from the [facility], the last time, he relapsed on heroin and cocaine. He states that he currently feels depressed, and feels like hurting himself. He tried to kill himself through overdose 2 days ago. He says that he feels weak, guilty, less active, and has lost interest in the things he used to enjoy. He denies having problems with sleep or appetite. He denies hearing voices or having visual hallucinations. He says he occasionally has racing thoughts, irritability, agitation and flight of ideas. He currently does 20 bags of heroin a day and 5 g of cocaine a day. He occasionally abuses Xanax, taking roughly 3-4 pills a week. He reports withdrawal symptoms including nausea, vomiting, abdominal cramps, sweats, headaches and joint pains. He denies any auditory hallucinations or any paranoia. Past Psych History: Bipolar Disorder Past Family Psych History: Sister had substance abuse problem. Past Medical History: Hep C - Diagnosis (1) Bipolar disorder Current Visit: Yes Status: Acute (2) Opiate addiction Current Visit: No Status: Acute - Final Diagnosis (DSM 5) Condition upon Discharge: STABLE Disposition: HOME/ ROUTINE Follow-up Treatment Plan: Bipolar disorder mixed severe without psychotic features Opioid use disorder severe Opioid withdrawal Cocaine use disorder severe Sedated/hypnotic use disorder moderate CBT Psychoeducation Supportive therapy, individual therapy, group therapy Depakote 250 mg p.o. twice daily Trazodone 50 mg p.o. nightly Hydroxyzine 25 mg p.o. every 6 hours as needed Methadone taper Clonidine as needed Neurontin 300 mg p.o. 3 times daily PRN medications for heroin withdrawal. Prescriptions/Medication Reconciliation: Divalproex [Depakote DR] 250 mg PO BID #60 tcp Gabapentin [Neurontin] 300 mg PO BID #60 cap traZODone [Desyrel] 100 mg PO HS #30 tab
== END 2018-03-26 11:15 | disposition home or self-care (01) | DRG 753 ==
LOC: C.ER 17:41 → C.5E 20:33
PROC: GZ3ZZZZ Medication Management (ICD-10-PCS; principal; 2018-03-19)
PROC: GZHZZZZ Group Psychotherapy (ICD-10-PCS; 2018-03-19)
PROC: GZ56ZZZ Individual Psychotherapy, Supportive (ICD-10-PCS; 2018-03-19)
PROC: HZ2ZZZZ Detoxification Services for Substance Abuse Treatment (ICD-10-PCS; 2018-03-19)
PROC: HZ81ZZZ Medication Management for Substance Abuse Treatment, Methadone Maintenance (ICD-10-PCS; 2018-03-19)
DX: F31.63 Bipolar disorder, current episode mixed, severe, without psychotic features (principal); F11.23 Opioid dependence with withdrawal; F14.20 Cocaine dependence, uncomplicated; F13.20 Sedative, hypnotic or anxiolytic dependence, uncomplicated; R45.851 Suicidal ideations; B18.2 Chronic viral hepatitis C; Z87.891 Personal history of nicotine dependence; Z91.5 Personal history of self-harm

== ENCOUNTER 2018-06-12 18:09 | Inpatient (IN) | payer MEDICAID, OTHER ==
[2018-06-12 18:19] VITALS: BMI 31.5
--- NOTE | 2018-06-12 19:16 | C.PDOC ---
History Of Present Illness 52 year old male presents to the ED requesting detoxification from heroin. Reports last heroin use was 4 hours ago. Denies any SI/HI, auditory or visual hallucinations, fever, chills or any other physical complaints. Chief Complaint (Nursing): Substance Abuse History Per: Patient History/Exam Limitations: no limitations Onset/Duration Of Symptoms: Days Current Symptoms Are (Timing): Still Present Suicide/Self Injury Attempted (Context): None Modifying Factor(s): Narcotics (heroin ) Associated Symptoms: denies: Suicidal Thoughts, Suicidal Plan Past Medical History Reviewed: Historical Data, Nursing Documentation, Vital Signs Vital Signs: Last Vital Signs Temp 97.4 F L 06/12/18 18:17 Pulse 79 06/12/18 18:17 Resp 20 06/12/18 18:17 BP 129/78 06/12/18 18:17 Pulse Ox 95 06/12/18 18:17 - Medical History PMH: Bipolar Disorder, Depression, Hepatitis (C) Denies: Diabetes, HIV, HTN, Chronic Kidney Disease, Seizures, Sexually Transmitted Disease Surgical History: No Surg Hx - [facility] DETOXIFICATION SERVICES FOR SUBSTANCE ABUSE TREATMENT (03/19/18) GROUP PSYCHOTHERAPY (03/19/18) INDIVIDUAL PSYCHOTHERAPY, SUPPORTIVE (03/19/18) MEDICATION MANAGEMENT (03/19/18) MEDS MGMT FOR SUBSTANCE ABUSE TREATMENT, METHADONE MAINT (03/19/18) Family History: States: No Known Family Hx - Social History Hx Tobacco Use: Yes Hx Alcohol Use: Yes Hx Substance Use: Yes - Immunization History Hx Tetanus Toxoid Vaccination: No Hx Influenza Vaccination: Yes Hx Pneumococcal Vaccination: Yes Review Of Systems Except As Marked, All Systems Reviewed And Found Negative. Constitutional: Negative for: Fever, Chills Psych: Negative for: Suicidal ideation Physical Exam - Physical Exam Appears: Non-toxic, No Acute Distress Skin: Warm, Dry Head: Normacephalic Eye(s): bilateral: Normal Inspection Nose: Normal Oral Mucosa: Moist Neck: Supple Chest: Symmetrical Cardiovascular: Rhythm Regular Respiratory: Normal Breath Sounds, No Rales, No Rhonchi, No Wheezing Extremity: Bilateral: Atraumatic, Normal Color And Temperature, Normal ROM Neurological/Psych: Oriented x3, Normal Speech Gait: Steady ED Course And Treatment - Laboratory Results Result Diagrams: 06/12/18 19:27 06/12/18 19:27 O2 Sat by Pulse Oximetry: 95 (RA) Pulse Ox Interpretation: Normal Medical Decision Making Medical Decision Making: Plan - Bloodwork - UA - Crisis Eval Disposition Discussed With DrMiguel: Thaddeus Arriaza Doctor Will See Patient In The: Hospital Counseled Patient/Family Regarding: Diagnosis - Disposition Disposition: HOSPITALIZED Disposition Time: 20:39 Condition: STABLE Forms: [facility] ([place]) - POA Present On Arrival: None - Clinical Impression Clinical Impression: Drug abuse - Scribe Statement The provider has reviewed the documentation as recorded by the Scribkaren Coello All medical record entries made by the Miltonibkaren were at my direction and personally dictated by me. I have reviewed the chart and agree that the record accurately reflects my personal performance of the history, physical exam, medical decision making, and the department course for this patient. I have also personally directed, reviewed, and agree with the discharge instructions and disposition.
[2018-06-12 19:32] LABS: BASO % 0.3 % (0.0-2.0); EOS # 0.1 K/uL (0.0-0.7); HEMOGLOBIN 13.9 g/dL (12.0-18.0); LYMPH # 1.5 K/uL (1.0-4.3); MEAN CORPUSCULAR HEMOGLOBIN 28.3 pg (27.0-31.0); MEAN CORPUSCULAR HGB CONC 32.3 g/dL (33.0-37.0); MEAN PLATELET VOLUME 7.1 fL (7.2-11.7); MONO # 0.6 K/uL (0.0-0.8); MONO % 7.6 % (0.0-10.0); NEUT # 5.2 K/uL (1.8-7.0); NEUT % 70.1 % (50.0-75.0); RBC 4.91 Mil/uL (4.40-5.90); RED CELL DISTRIBUTION WIDTH 13.6 % (11.5-14.5); WHITE BLOOD COUNT 7.4 K/uL (4.8-10.8)
[2018-06-12 19:38] LABS: MEAN CELL VOLUME 87.5 fL (80.0-94.0)
[2018-06-12 19:44] LABS: SQUAMOUS EPITHIAL < 1 /hpf (0-5); URINE BACTERIA OCC (<OCC); URINE BILIRUBIN NEGATIVE (NEGATIVE); URINE BLOOD NEGATIVE (NEGATIVE); URINE CLARITY Hazy (Clear); URINE COLOR Yellow (YELLOW); URINE GLUCOSE (UA) NORMAL (Normal); URINE LEUKOCYTE ESTERASE NEG Leu/uL (Negative); URINE PROTEIN NEGATIVE (NEGATIVE)
[2018-06-12 19:45] LABS: ALB/GLOB RATIO 1.5 (1.0-2.1); ALBUMIN 4.4 g/dL (3.5-5.0); ALT/SGPT 44 U/L (21-72); AST/SGOT 34 U/L (17-59); BLOOD UREA NITROGEN 14 mg/dL (9-20); CALCIUM 9.1 mg/dl (8.6-10.4); GFR NON-AFRICAN AMERICAN > 60
[2018-06-12 19:57] LABS: PHENCYCLIDINE, UR NEGATIVE (NEGATIVE)
[2018-06-12 20:00] LABS: BARBITURATES, UR POSITIVE (NEGATIVE); BENZODIAZEPINES, UR POSITIVE (NEGATIVE); OPIATES, UR POSITIVE (NEGATIVE)
--- NOTE | 2018-06-12 22:25 | PCM.BM ---
<Ronnell Mclean - Last Filed: 06/12/18 22:22> Treatment Plan Problems - Problems identified on initial assessmt denial Date Initiated: 06/12/18 Time Initiated: 22:23 Assessment reference: NA Status: Active defensive coping Date Initiated: 06/12/18 Time Initiated: 22:24 Assessment reference: NA Status: Active low motivation to change Date Initiated: 06/12/18 Time Initiated: 22:24 Assessment reference: NA Status: Active Treatment assets and liabiliti Patient Assests: adapts well, cooperative, self-reliant, ADL independent, physically healthy, negotiates basic needs Patient Liabilities: substance abuse, medical problems - Milieu Protocol Maintain good personal hygiene: daily Encourage regular showers, daily Remind patient to perform daily oral care, daily Assist patient to perform ADL's Conduct patient checks and document Observation sheet: Q15 minutes Maintain personal safety: every shift Educate patient to report safety concerns to staff, every shift Monitor environment for contraband/sharps Medication safety: Monitor for expected outcome, potential side effects: every shift, Assess barriers to learning: every shift, Assess readiness for medication education: every shift <Marli Healy - Last Filed: 06/13/18 14:25> Family Contact Family involvement: Famliy/SO not involved - Goals for Treatment Patient goals for treatment: Complete detox and discuss aftercare options with counseling staff. Discharge/Continuing Care - Education Needs Education Needs: Patient Medication, Patient Diagnosis/Disease Process, Patient Coping Skills, Patient Anger Management skills, Patient Placement options, Patient Community resources - Discharge Discharge Criteria: No longer exhibiting s/s of withdrawal, Reduction of target symptoms Discharge to:: Other - Additional Comments 06/13/18 14:26 TBD as of this writing, Pt. is unsure what aftercare he wants to pursue. - Treatment Team Participation Discussed with Family/SO: No Was Patient/Family/SO present at Treatment Team Meeting: Yes <Thaddeus Arriaza - Last Filed: 06/16/18 10:40> - Diagnosis (1) Opiate addiction Status: Acute Interventions: 06/13/18 10:40 * Assess 7x/week regarding severity of withdrawal * Educate regarding risks, benefits, side effects and alternatives of medications * Use Motivational Interviewing for abstinence * Use CBT for relapse prevention * Medication management for withdrawal symptoms * Encourage medication assisted treatment *
[2018-06-12] MEDS ORDERED: Magnesium Hydroxide Susp 30 ml UD PO PRN (22:30)
[2018-06-12] MEDS ORDERED: Aluminum Hydroxide/Magnesium Hydroxide Susp (30 mL) PO PRN (22:30)
--- NOTE | 2018-06-13 11:56 | PCM.PSYCH ---
Initial Psychiatric Evaluation - Initial Psychiatric Evaluation Type of Admission: Voluntary Legal Status: Capacity Chief Complaint (in patient's own words): "Not good" History of Present Illness and Precipitating Events: This is a 52 year old male who is single, currently living with his mother in [place], and is unemployed. He presented to the detox unit for heroin, cocaine, and Xanax abuse. Patient reports he began using drugs around 20 years ago due to a variety of reasons but continues using because he experiences withdrawal symptoms of nausea, vomiting, muscle weakness, and tremors. Patient states he is currently fatigued and experiencing tremors. His last use of heroin, cocaine, and Xanax was yesterday evening at 5pm. Patient denies homicidal or suicidal ideations, auditory or visual hallucinations, or paranoia. He feels depressed, though He injected 20 bags of heroin a day for the last few weeks, which is more than usual. He has used for the past 20 years. Patient injects 1 gram of cocaine per day for the past 18 years. Patient ingests 2 bars of Xanax a day for the past year. Patient has a few drinks per week. Patient smokes 1 pack per day for the last 30 years. Patient denies marijuana or methamphetamine use. Patient confirms of 3 prior hospitalizations for psychiatric illness and substance abuse at [facility] on [facility], with the most recent in March 2018. Patient denies history of maintenance therapy. Following detox, he wishes to attend an intensive inpatient program. Psych Hx: depression, bipolar disorder, opioid use disorder Fam Psych: sister has substance abuse problem PMHx: denies Meds: denies Allergies: none SurgHx: denies Current Medications: Active Medications Generic Name Dose Route Start Last Admin Trade Name Freq PRN Reason Stop Dose Admin Al Hydrox/Mg Hydrox/Simethicone 30 ml 06/12/18 22:30 Maalox 30 Ml PO TID PRN Indigestion / Heartburn Clonidine HCl 0.1 mg 06/12/18 22:30 Catapres PO Q4 PRN COWS Score More or Equal to 5 Dicyclomine HCl 10 mg 06/12/18 22:30 Bentyl PO Q6 PRN Muscle spasm Gabapentin 400 mg 06/13/18 10:00 06/13/18 10:36 Neurontin PO 400 mg TID MARION Administration Hydroxyzine HCl 50 mg 06/12/18 22:33 Atarax PO QID PRN Anxiety Ibuprofen 600 mg 06/12/18 22:30 Motrin Tab PO Q6 PRN Pain, moderate (4-7) Loperamide HCl 2 mg 06/12/18 22:30 Imodium PO Q8 PRN Diarrhea Magnesium Hydroxide 30 ml 06/12/18 22:30 Milk Of Magnesia PO 06/15/18 10:01 BID PRN Constipation Nicotine 1 patch 06/13/18 10:00 06/13/18 10:36 Nicoderm Cq TD 1 patch DAILY MARION Administration Ondansetron HCl 4 mg 06/12/18 22:30 Zofran Tab PO Q8 PRN Nausea/Vomiting Trazodone HCl 100 mg 06/12/18 22:32 Desyrel PO HS PRN Sleep Past Psychiatric History - Past Psychiatric History Previous Treatment History: Inpatient Pertinent Medical Hx (Current Medical&Sleep Prob, Allergies): Allergies Allergy/AdvReac Type Severity Reaction Status Date / Time shellfish Allergy Uncoded 06/12/18 18:17 Divalproex [Depakote DR] 250 mg PO BID #60 tcp 03/26/18 Gabapentin [Neurontin] 300 mg PO BID #60 cap 03/26/18 traZODone [Desyrel] 100 mg PO HS #30 tab 03/26/18 Review of Systems - Neurological Neurological: Tremor - Psychiatric Psychiatric: Abnormal Sleep Pattern, Anxiety, Depression, Difficulty Concentrating, Mood Swings. absent: Hallucinations, Homicidal Ideation, Paranoia, Suicidal Ideation Mental Status Examination - Personal Presentation Personal Presentation: Looks stated age - Affect Affect: Constricted - Motor Activity Motor Activity: Calm - Reliability in Providing Information Reliability in Providing Information: Good - Speech Speech: Organized - Mood Mood: Depressed, Anxious - Formal Thought Process Formal Thought Process: No Impairment - Cognitive Functions Orientation: Person, Place, Situation, Time Sensorium: Alert Attention/Concentration: Attentive Estimate of Intelligence: Average Judgement: Intact, as evidence by: Insight regarding need for hospitalization Memory: Recent intact, as evidence by: Ability to recall events of the day, Remote intact, as evidenced by: Abilit to recall sig. life events - Risk Risk: Withdrawal, Diminished functioning - Strength & Assets Inventory Strength & Assets Inventory: Cooperative - Limitations Limitations: Other DSM 5 DX - DSM 5 DSM 5 Diagnosis: Opioid use disorder, severe Opioid withdrawal Bipolar disorder mixed severe without psychotic features Cocaine use disorder, severe Sedative/hypnotic use disorder, moderate - Recommended/Plan of Treatment Treatment Recommendations and Plan of Treatment: Taper with Methadone Gabapentin for augmentation As needed medications Clonidine, Atarax, and Motrin Trazodone for insomnia All risks, benefits and alternatives of the meds discussed, and the pt agreed and understood. Attend groups and activities Supportive therapy and psychoeducation [place] for abstinence CBT for relapse prevention Encourage MAT Refer to outpatient rehab or IOP, and self-help groups; patient prefers skilled nursing inpatient rehab Teach healthy lifestyle methods, i.e. diet, exercise, meditation Smoking cessation with [place] Nicotine patch if needed 33 min Projected ELOS: 5 days - Smoking Cessation Smoking Cessation Initiated: Yes
--- NOTE | 2018-06-14 14:51 | PCM.PYCHPN ---
Psychiatric Progress Note - Psychiatric Progress Note Patient seen today, length of contact: 17 min Patient Chief Complaint: "I still have withdrawal" Problems Identified/Issues Discussed: The pt is seen, chart reviewed, case is discussed with staff. The pt is compliant with medications and reports no side-effects. Symptoms are improving but needs more time to stabilize and to avoid relapse. Pt attends groups and activities. Support given, psycho-education provided. After care discussed. Medication Change: Yes (detox changes daily) Medical Record Reviewed: Yes Mental Status Examination - Cognitive Function Orientation: Person, Place, Situation, Time Memory: Intact Attention: WNL Concentration: Poor Association: WNL Fund of Knowledge: WNL - Mood Mood: Depressed, Anxious - Affect Affect: Constricted - Speech Speech: Appropriate - Formal Thought Process Formal Thought Process: No Impairment - Suicidal Ideation Suicidal Ideation: No - Homicidal Ideation Homicidal Ideation: No Goal/Treatment Plan - Goal/Treatment Plan Need for Continued Stay: Discharge may exacerbated symptoms, Severe functional impairment Progress Toward Problem(s) and Goals/Treatment Plan: Taper with Methadone Gabapentin for augmentation As needed medications Clonidine, Atarax, and Motrin Trazodone for insomnia All risks, benefits and alternatives of the meds discussed, and the pt agreed and understood. 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 diet, exercise, meditation Smoking cessation with [place] Nicotine patch if needed
[2018-06-15 13:30] VITALS: PULSE 63
[2018-06-15 17:05] VITALS: BP 105/60; RESP 20; TEMP 98.6; O2SAT 98
--- NOTE | 2018-06-15 18:42 | PCM.PYCHPN ---
Psychiatric Progress Note - Psychiatric Progress Note Patient seen today, length of contact: 15 minutes Patient Chief Complaint: I'm not feeling better, I'm little irritable. Problems Identified/Issues Discussed: Patient seen, chart reviewed, case discussed with the staff. Issues related to illness and treatment were discussed with the patient and staff. Compliant with treatment with no adverse affects. Tolerating treatment very well. Mood reported as anxious. Affect appropriate. Reported feeling not feeling better, feeling little irritable still has some withdrawal symptoms including body aches, weakness, abdominal cramps and headache. Education provided to the patient about treatment and also supportive therapy provided. Patient became calm after that. Aftercare discussed with the patient. Patient denied any delusions, auditory or visual hallucinations, no suicidal ideations or homicidal ideations at the time of evaluation. Medical Problems: None reported Diagnostic Results: Reviewed DSM 5 Symptoms Update: Some improvement with treatment Medication Change: No Medical Record Reviewed: Yes Mental Status Examination - Cognitive Function Orientation: Person, Place, Situation, Time Memory: Intact Attention: WNL Concentration: WNL Association: [facility] Fund of Knowledge: [facility] Decription of patient's judgement and insights: Fair - Mood Mood: Anxious - Affect Affect: Other (Anxious) - Speech Speech: Appropriate - Formal Thought Process Formal Thought Process: No Impairment Psychotic Thoughts and Behaviors: none - Suicidal Ideation Suicidal Ideation: No - Homicidal Ideation Homicidal Ideation: No Goal/Treatment Plan - Goal/Treatment Plan Need for Continued Stay: Remain at risks for inpatient hospitalization, Discharge may exacerbated symptoms, Severe functional impairment Progress Toward Problem(s) and Goals/Treatment Plan: Some improvemet with treatment. Patient educatin. Supportive terapy. CBT for relapse preven [place] for abstinece Continue treatment as before Estimated Date of D/C: 06/17/18 - Smoking Cessation Smoking Cessation Initiated: Yes
--- NOTE | 2018-06-16 18:54 | PCM.PYCHDC ---
Mental Status Examination - Mental Status Examination Orientation: Person, Place, Situation, Time Memory: Intact Mood: Neutral Affect: Other (Appropriate) Speech: Appropriate Attention: WNL Concentration: WNL Association: WNL Fund of Knowledge: WNL Formal Thought Process: No Impairment Description of patient's judgement and insight: Poor Psychotic Thoughts and Behaviors: none Suicidal Ideation: No Current Homicidal Ideation?: No Discharge Summary - Discharge Note Reason for Hospitalization: Opioid use disorder, severe Opioid withdrawal Bipolar disorder mixed severe without psychotic features Cocaine use disorder, severe Sedative/hypnotic use disorder, moderate Consultations:: List each consultation separately and include: 1. Reason for request. 2. Findings. 3. Follow-up Summary of Hospital Course include:: 1. Description of specific treatment plan utilized for patients during their course of treatmen. 2. Summarize the time- course for resolution of acute symptoms and/or regressed behaviors. 3. Describe issues identified and worked on during hospitalization. 4. Describe medication utilized. 5. Describe medical problems identified and treated. 6. Reassessment of suicide risk Summary of Hospital Course: This is a 52 year old male who is single, currently living with his mother in [place], and is unemployed. He presented to the detox unit for heroin, cocaine, and Xanax abuse. Patient reports he began using drugs around 20 years ago due to a variety of reasons but continues using because he experiences withdrawal symptoms of nausea, vomiting, muscle weakness, and tremors. Patient states he is currently fatigued and experiencing tremors. His last use of heroin, cocaine, and Xanax was yesterday evening at 5pm. Patient denies homicidal or suicidal ideations, auditory or visual hallucinations, or paranoia. He feels depressed, though He injected 20 bags of heroin a day for the last few weeks, which is more than usual. He has used for the past 20 years. Patient injects 1 gram of cocaine per day for the past 18 years. Patient ingests 2 bars of Xanax a day for the past year. Patient has a few drinks per week. Patient smokes 1 pack per day for the last 30 years. Patient denies marijuana or methamphetamine use. Patient confirms of 3 prior hospitalizations for psychiatric illness and substance abuse at [facility] [place] on 5[facility], with the most recent in March 2018. Patient denies history of maintenance therapy. Following detox, he wishes to attend an intensive inpatient program. Psych Hx: depression, bipolar disorder, opioid use disorder Fam Psych: sister has substance abuse problem PMHx: denies Meds: denies Allergies: none SurgHx: denies During the stay in the hospital patient was treated with methadone taper for opioid withdrawal symptoms. Patient was also started on other PRN medications. Patient was isolative in his room most of the time. Patient started feeling little better with the treatment. Today patient decided to leave the unit without completion of the treatment. Education provided, still patient refused to stay. Patient was educated that in cases of any adverse event including relapse, decompensation, overdose or even of the patient, patient will be responsible for his acts. Patient understood and agreed with above but still refused to stay and left the unit AGAINST MEDICAL ADVICE. At the time of evaluation and discharge, patient was awake, alert and oriented x3, had no delusions, no auditory or visual hallucinations, no suicidal ideations or homicidal ideations. - Final Diagnosis (DSM 5) Condition upon Discharge: STABLE Disposition: AGAINST MEDICAL ADVICE - Smoking Cessation Smoking Cessation Medication prescribed: No - Antipsychotic Medications Pt discharged on 2 or more routine antipsychotic medications: No
== END 2018-06-16 12:30 | disposition left against medical advice (07) | DRG 770 ==
LOC: C.ER 18:09 → C.7D 20:40
PROVIDERS: ADMIT Psychiatry & Neurology Psychiatry; ATTEND Psychiatry & Neurology Psychiatry
PROC: HZ2ZZZZ Detoxification Services for Substance Abuse Treatment (ICD-10-PCS; principal; 2018-06-12)
PROC: GZ3ZZZZ Medication Management (ICD-10-PCS; 2018-06-12)
PROC: HZ81ZZZ Medication Management for Substance Abuse Treatment, Methadone Maintenance (ICD-10-PCS; 2018-06-12)
PROC: HZ80ZZZ Medication Management for Substance Abuse Treatment, Nicotine Replacement (ICD-10-PCS; 2018-06-12)
PROC: HZ46ZZZ Group Counseling for Substance Abuse Treatment, Psychoeducation (ICD-10-PCS; 2018-06-12)
PROC: HZ59ZZZ Individual Psychotherapy for Substance Abuse Treatment, Supportive (ICD-10-PCS; 2018-06-12)
DX: F11.23 Opioid dependence with withdrawal (principal); F31.63 Bipolar disorder, current episode mixed, severe, without psychotic features; F14.20 Cocaine dependence, uncomplicated; F13.20 Sedative, hypnotic or anxiolytic dependence, uncomplicated; F17.210 Nicotine dependence, cigarettes, uncomplicated; G47.00 Insomnia, unspecified

== ENCOUNTER 2018-08-03 08:55 | Inpatient (IN) | payer OTHER ==
--- NOTE | 2018-08-03 09:16 | C.PDOC ---
History Of Present Illness 52 year old male presents for evaluation of suicidal ideations and depression. The pt reports use of heroin, cocaine, and marijuana today. Notes he was standing on a bridge with suicidal thoughts. Denies injuries, HI, and any other associated symptoms. Time Seen by Provider: 08/03/18 09:04 Chief Complaint (Nursing): Psychiatric Evaluation History Per: Patient History/Exam Limitations: no limitations Onset/Duration Of Symptoms: Days Current Symptoms Are (Timing): Still Present Associated Symptoms: Depression Recent travel outside of the [place]: No Past Medical History Reviewed: Historical Data, Nursing Documentation, Vital Signs - Medical History PMH: Bipolar Disorder, Depression, Hepatitis (C) Denies: Diabetes, HIV, HTN, Chronic Kidney Disease, Seizures, Sexually Transmitted Disease - [facility] Procedures DETOXIFICATION SERVICES FOR SUBSTANCE ABUSE TREATMENT (06/12/18) GROUP MEDICAL ASSEMBLY FOR SUBSTANCE ABUSE TREATMENT, PSYCHOEDUCATION (06/12/18) GROUP PSYCHOTHERAPY (03/19/18) INDIV PSYCHOTHERAPY FOR SUBSTANCE ABUSE TREATMENT, SUPPORT (06/12/18) INDIVIDUAL PSYCHOTHERAPY, SUPPORTIVE (03/19/18) MEDICATION MANAGEMENT (06/12/18) MEDS MGMT FOR SUBSTANCE ABUSE TREATMENT, METHADONE MAINT (06/12/18) MEDS MGMT FOR SUBSTANCE ABUSE TREATMENT, NICOTINE REPLACE (06/12/18) Family History: States: Unknown Family Hx - Social History Hx Tobacco Use: Yes Hx Alcohol Use: No Hx Substance Use: Yes - Immunization History Hx Tetanus Toxoid Vaccination: No Hx Influenza Vaccination: Yes Hx Pneumococcal Vaccination: Yes Review Of Systems Except As Marked, All Systems Reviewed And Found Negative. Constitutional: Negative for: Other (injuries. ) Psych: Positive for: Depression, Suicidal ideation. Negative for: Other (homicidal ideations. ) Physical Exam - Physical Exam Appears: Non-toxic, No Acute Distress Skin: Warm, Dry Head: Atraumatic, Normacephalic Eye(s): bilateral: Normal Inspection Oral Mucosa: Moist Neck: Normal ROM, Supple Chest: Symmetrical, No Deformity Cardiovascular: Rhythm Regular, No Murmur Gastrointestinal/Abdominal: Normal Exam, Soft, No Tenderness Extremity: Bilateral: Atraumatic, Normal Color And Temperature, Normal ROM Neurological/Psych: Oriented x3, Normal Speech, Normal Cognition, Other (suicidal ideations. ) ED Course And Treatment - Laboratory Results Result Diagrams: 08/03/18 10:56 04/20/19 10:56 Medical Decision Making Medical Decision Making: Initial plan: -Blood sent. -Urinalysis Progress/Update: Medically cleared for psychiatry admission by Dr. Arriaza. Disposition Discussed With .: Thaddeus Arriaza Counseled Patient/Family Regarding: Diagnosis - Disposition Disposition: HOSPITALIZED Disposition Time: 12:13 Condition: STABLE Forms: [facility] (Chinese) - Clinical Impression Clinical Impression: Bipolar disorder, Drug abuse, Suicidal thoughts - Scribe Statement The provider has reviewed the documentation as recorded by the Scribe (Ely Knapp) Provider Attestation: All medical record entries made by the Scribe were at my direction and personally dictated by me. I have reviewed the chart and agree that the record accurately reflects my personal performance of the history, physical exam, medical decision making, and the department course for this patient. I have also personally directed, reviewed, and agree with the discharge instructions and disposition.
[2018-08-03 10:45] LABS: SQUAMOUS EPITHIAL < 1 /hpf (0-5); URINE BILIRUBIN NEGATIVE (NEGATIVE); URINE BLOOD NEGATIVE (NEGATIVE); URINE CLARITY Hazy (Clear); URINE COLOR Amber (YELLOW); URINE GLUCOSE (UA) NORMAL (Normal); URINE LEUKOCYTE ESTERASE NEG Leu/uL (Negative); URINE PROTEIN NEGATIVE (NEGATIVE)
[2018-08-03 11:01] LABS: BASO # 0.1 K/uL (0.0-0.2); BASO % 0.6 % (0.0-2.0); EOS # 0.2 K/uL (0.0-0.7); EOS % 2.9 % (0.0-4.0); HEMOGLOBIN 14.5 g/dL (12.0-18.0); LYMPH # 1.4 K/uL (1.0-4.3); LYMPH % 18.1 % (20.0-40.0); MEAN CELL VOLUME 87.8 fL (80.0-94.0); MEAN CORPUSCULAR HEMOGLOBIN 30.3 pg (27.0-31.0); MEAN CORPUSCULAR HGB CONC 34.5 g/dL (33.0-37.0); MEAN PLATELET VOLUME 7.1 fL (7.2-11.7); MONO # 0.7 K/uL (0.0-0.8); MONO % 9.1 % (0.0-10.0); NEUT # 5.4 K/uL (1.8-7.0); NEUT % 69.3 % (50.0-75.0); NRBC % 0.1 % (0.0-2.0); RBC 4.78 Mil/uL (4.40-5.90); RED CELL DISTRIBUTION WIDTH 14.1 % (11.5-14.5); WHITE BLOOD COUNT 7.8 K/uL (4.8-10.8)
[2018-08-03 11:16] LABS: BARBITURATES, UR NEGATIVE (NEGATIVE); PHENCYCLIDINE, UR NEGATIVE (NEGATIVE)
[2018-08-03 11:17] LABS: ALB/GLOB RATIO 1.5 (1.0-2.1); ALBUMIN 4.6 g/dL (3.5-5.0); ALT/SGPT 60 U/L (21-72); AST/SGOT 51 U/L (17-59); BLOOD UREA NITROGEN 15 mg/dL (9-20); CALCIUM 9.3 mg/dl (8.6-10.4); GFR NON-AFRICAN AMERICAN > 60
[2018-08-03 11:17] LABS: BENZODIAZEPINES, UR POSITIVE (NEGATIVE); OPIATES, UR POSITIVE (NEGATIVE)
[2018-08-03 12:24] VITALS: O2SAT 98
--- NOTE | 2018-08-03 13:29 | PCM.BM ---
<SureshBrionnayasmany Connell - Last Filed: 08/03/18 13:26> Treatment Plan Problems - Problems identified on initial assessmt Defensive Coping Date Initiated: 08/03/18 Time Initiated: 13:27 Assessment reference: NA Status: Active Anxiety related to substance use Date Initiated: 08/03/18 Time Initiated: 13:27 Assessment reference: NA Status: Active Depression Date Initiated: 08/03/18 Time Initiated: 13:27 Assessment reference: NA Status: Active Treatment assets and liabiliti Patient Assests: adapts well, cooperative, self-reliant, ADL independent, physic ally healthy, negotiates basic needs Patient Liabilities: financial problems, substance abuse - Milieu Protocol Maintain good personal hygiene: daily Encourage regular showers, daily Remind patient to perform daily oral care, daily Assist patient to perform ADL's Conduct patient checks and document Observation sheet: Q15 minutes Maintain personal safety: every shift Educate patient to report safety concerns to staff, every shift Monitor environment for contraband/sharps Medication safety: Monitor for expected outcome, potential side effects: every shift, Assess barriers to learning: every shift, Assess readiness for medication education: every shift <Anastacia Groves - Last Filed: 08/05/18 10:10> Family Contact Family involvement: Famliy/SO not involved - Goals for Treatment Patient goals for treatment: "I need an outpatient program." Discharge/Continuing Care - Education Needs Education Needs: Patient Medication, Patient Coping Skills - Discharge Discharge Criteria: Tolerates medication w/o severe side effects, Reduction of target symptoms Discharge to:: Home - Treatment Team Participation Discussed with Family/SO: No Was Patient/Family/SO present at Treatment Team Meeting: Yes <Enzo Amaya - Last Filed: 08/06/18 21:19> - Diagnosis (1) Major depressive disorder, recurrent severe without psychotic features Status: Acute Interventions: 08/06/18 21:03 Assess/adjust medications daily and /or as needed See patient on an individual basis 7x/week to assess level of manic behaviors and stability Discuss risks, benefits, side effects and alternatives of medication (2) Opioid withdrawal Status: Acute Interventions: 08/06/18 21:04 Assess 7x/week regarding severity of withdrawal Educate regarding risks, benefits, side effects and alternatives of medications Use Motivational Interviewing for abstinence Use CBT for relapse prevention Medication management for withdrawal symptoms Encourage medication assisted treatment (3) Opioid use disorder, severe, dependence Status: Acute Interventions: 08/06/18 21:05 Assess 7x/week regarding severity of withdrawal Educate regarding risks, benefits, side effects and alternatives of medications Use Motivational Interviewing for abstinence Use CBT for relapse prevention Medication management for withdrawal symptoms Encourage medication assisted treatment (4) Cocaine use disorder, severe, dependence Status: Acute Interventions: 08/06/18 21:05 Assess 7x/week regarding severity of withdrawal Educate regarding risks, benefits, side effects and alternatives of medications Use Motivational Interviewing for abstinence Use CBT for relapse prevention Medication management for withdrawal symptoms Encourage medication assisted treatment (5) Sedative, hypnotic or anxiolytic use disorder, mild, abuse Status: Acute Interventions: 08/06/18 21:06 Assess 7x/week regarding severity of withdrawal Educate regarding risks, benefits, side effects and alternatives of medications Use Motivational Interviewing for abstinence Use CBT for relapse prevention Medication management for withdrawal symptoms Encourage medication assisted treatment
[2018-08-03] MEDS ORDERED: Aluminum Hydroxide/Magnesium Hydroxide Susp (30 mL) PO PRN (15:00)
[2018-08-03] MEDS: Divalproex 500 mg DR Tab PO SCH (18:20)
[2018-08-04 06:31] VITALS: RESP 18
[2018-08-04] MEDS: Divalproex 500 mg DR Tab PO SCH ×2 (10:35→17:11)
--- NOTE | 2018-08-04 12:28 | PCM.PSYCH ---
Initial Psychiatric Evaluation - Initial Psychiatric Evaluation Type of Admission: Voluntary Legal Status: Capacity Chief Complaint (in patient's own words): "Depressed" History of Present Illness and Precipitating Events: This is a 52 year old male who is single, currently living with his mother in [place], and is unemployed. He collects unemployment. He presented to the ED for suicidal ideation, depression, heroin, cocaine and Xanax use. Patient reports he began using drugs around 20 years ago due to a variety of reasons but continues using because he experiences withdrawal symptoms of nausea, vomiting, muscle weakness, and tremors. Patient states he is currently fatigued and experiencing tremors. Patient denies homicidal or suicidal ideations now he had SI when he was admitted. He feels depressed, hopeless and pessimistic. [place] . He injected 20 bags of heroin a day for the last few weeks, which is more than usual. He has used for the past 20 years. Patient injects 1 gram of cocaine per day for the past 18 years. Patient ingests 2 bars of Xanax a day for the past year on and off. Patient has a few drinks per week. Patient smokes 1 pack per day for the last 30 years. He smokes MJ too. Patient confirms of 4 prior hospitalizations for psychiatric illness and substance abuse at [facility] on 5E. He has been to detox many times and rehab 2-3 times.Patient denies history of maintenance therapy. Following detox, he wishes to attend an intensive inpatient program. Psych Hx: depression, bipolar disorder, opioid use disorder Fam Psych: sister has substance abuse problem PMHx: denies Meds: denies Allergies: none SurgHx: denies Current Medications: Active Medications Generic Name Dose Route Start Last Admin Trade Name Freq PRN Reason Stop Dose Admin Al Hydrox/Mg Hydrox/Simethicone 30 ml 08/03/18 15:00 Maalox 30 Ml PO TID PRN Indigestion / Heartburn Clonidine HCl 0.1 mg 08/03/18 15:00 Catapres PO Q4 PRN COWS Score More or Equal to 5 Divalproex Sodium 500 mg 08/03/18 18:00 08/04/18 10:[address] PO 500 mg BID MARION Administration Gabapentin 300 mg 08/03/18 18:00 08/04/18 10:35 Neurontin PO 300 mg TID MARION Administration Hydroxyzine HCl 50 mg 08/03/18 15:00 Atarax PO Q6H PRN Anxiety Ibuprofen 600 mg 08/03/18 15:00 Motrin Tab PO Q6H PRN Pain, moderate (4-7) Loperamide HCl 2 mg 08/03/18 15:00 Imodium PO Q8H PRN Diarrhea Methadone HCl 15 mg 08/04/18 10:00 08/04/18 10:35 Methadone PO 08/07/18 09:59 15 mg Q24H MARION Administration Taper Mirtazapine 15 mg 08/03/18 22:00 08/03/18 22:01 Remeron PO 15 mg HS MARION Administration Ondansetron HCl 4 mg 08/03/18 15:00 Zofran Tab PO Q8H PRN Nausea/Vomiting Pneumococcal Polyvalent Vaccine 0.5 ml 08/06/18 10:00 Pneumovax 23 Vaccine IM 08/06/18 10:01 .ONCE ONE Trazodone HCl 100 mg 08/03/18 22:00 Desyrel PO HS PRN Insomnia Past Psychiatric History - Past Psychiatric History Previous Treatment History: Inpatient Pertinent Medical Hx (Current Medical&Sleep Prob, Allergies): Allergies Allergy/AdvReac Type Severity Reaction Status Date / Time shellfish Allergy Uncoded 08/03/18 09:04 No Known Home Med 08/03/18 Review of Systems - Psychiatric Psychiatric: Abnormal Sleep Pattern, Anhedonia, Anxiety, Change in Appetite, Depression, Difficulty Concentrating, Irritability, Mood Swings. absent: Homicidal Ideation, Suicidal Ideation Mental Status Examination - Personal Presentation Personal Presentation: Looks stated age - Affect Affect: Constricted - Motor Activity Motor Activity: Calm - Reliability in Providing Information Reliability in Providing Information: Good - Speech Speech: Organized - Mood Mood: Depressed - Formal Thought Process Formal Thought Process: No Impairment - Cognitive Functions Orientation: Person, Place, Situation, Time Sensorium: Alert Attention/Concentration: Attentive Estimate of Intelligence: Average Judgement: Intact, as evidence by: Insight regarding need for hospitalization Memory: Recent intact, as evidence by: Ability to recall events of the day, Remote intact, as evidenced by: Abilit to recall sig. life events - Risk Risk: Withdrawal, Diminished functioning - Strength & Assets Inventory Strength & Assets Inventory: Cooperative - Limitations Limitations: Other DSM 5 DX - DSM 5 DSM 5 Diagnosis: Major depression, recurrent, severe r/o Bipolar d/o - depressed Opioid use disorder, severe Opioid withdrawal Cocaine use disorder, severe Sedative/hypnotic use disorder, moderate - Recommended/Plan of Treatment Treatment Recommendations and Plan of Treatment: Taper with Methadone Gabapentin for augmentation Depakote for mood swings, anger Remeron for depression As needed medications Clonidine, Atarax, and Motrin Trazodone for insomnia All risks, benefits and alternatives of the meds discussed, and the pt agreed and understood. 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 diet, exercise, meditation Smoking cessation with NE Nicotine patch if needed 32 min Projected ELOS: 4-5 days
[2018-08-05] MEDS: Divalproex 500 mg DR Tab PO SCH ×2 (09:48→17:29)
--- NOTE | 2018-08-05 12:27 | PCM.PYCHPN ---
Psychiatric Progress Note - Psychiatric Progress Note Patient seen today, length of contact: 15 minutes Patient Chief Complaint: I am feeling little better. Problems Identified/Issues Discussed: Patient seen, chart reviewed, case discussed with the staff. Patient is related to illness and treatment were discussed with the patient and staff. Patient was evaluated with team. Reported compliant with treatment with no adverse effects. Tolerating treatment very well. Reported feeling little better. As patient still has some withdrawal symptoms including nausea, body aches, abdominal cramps and weakness. Staff reported that patient refused to take Depakote and gabapentin. Issues discussed with the patient. Patient reported that he does not want to take gabapentin and Depakote due to sedation. Patient also reported that he stopped taking Depakote about 1 week ago. Education provided about the medications. Patient agreed to take Depakote but not gabapentin. Will DC gabapentin. Mood reported as anxious. Affect appropriate. Patient was little clearer. Aftercare discussed with the patient. Patient needs more time for stabilization. Patient denied any suicidal or homicidal ideation at the time of Medical Problems: None reported Diagnostic Results: Reviewed DSM 5 Symptoms Update: Some improvement with treatment. Medication Change: No Medical Record Reviewed: Yes Mental Status Examination - Cognitive Function Orientation: Person, Place, Situation, Time Memory: Intact Attention: WNL Concentration: WNL Association: [facility] Fund of Knowledge: [facility] Decription of patient's judgement and insights: Fair - Mood Mood: Anxious - Affect Affect: Other (Appropriate) - Speech Speech: Appropriate - Formal Thought Process Formal Thought Process: No Impairment Psychotic Thoughts and Behaviors: None - Suicidal Ideation Suicidal Ideation: No - Homicidal Ideation Homicidal Ideation: No Goal/Treatment Plan - Goal/Treatment Plan Need for Continued Stay: Remain at risks for inpatient hospitalization, Discharge may exacerbated symptoms, Severe functional impairment Progress Toward Problem(s) and Goals/Treatment Plan: Patient education. Supportive therapy. CBT for relapse prevention. [place] for abstinence. Will DC gabapentin. Continue rest of the treatment as before. Patient will go to [facility] for follow-up care after discharge from the hospital. Estimated Date of D/C: 08/08/18 - Smoking Cessation Smoking Cessation Initiated: No
[2018-08-06] MEDS: Divalproex 500 mg DR Tab PO SCH ×2 (09:31→17:29)
[2018-08-06] MEDS ORDERED: Pneumococcal 23-Valent Vaccine IM ONE (10:00)
--- NOTE | 2018-08-06 21:13 | PCM.PYCHPN ---
Psychiatric Progress Note - Psychiatric Progress Note Patient seen today, length of contact: 15 minutes Patient Chief Complaint: I am feeling little better. Problems Identified/Issues Discussed: Patient seen, chart reviewed, case discussed with the staff. Patient is related to illness and treatment were discussed with the patient and staff. Patient was evaluated with team. Reported compliant with treatment with no adverse effects. Tolerating treatment very well. Reported feeling little better. As patient feels tired and still has some withdrawal symptoms including nausea, body aches, abdominal cramps and weakness. Mood reported as anxious. Affect appropriate. Patient was little clearer. Aftercare discussed with the patient. Patient needs more time for stabilization. Patient denied any suicidal or homicidal ideation at the time of Medical Problems: None reported Diagnostic Results: Reviewed DSM 5 Symptoms Update: Some improvement with treatment. Medication Change: No Medical Record Reviewed: Yes Mental Status Examination - Cognitive Function Orientation: Person, Place, Situation, Time Memory: Intact Attention: WNL Concentration: WNL Association: WNL Fund of Knowledge: WN Decription of patient's judgement and insights: Fair - Mood Mood: Anxious - Affect Affect: Other (Appropriate) - Speech Speech: Appropriate - Formal Thought Process Formal Thought Process: No Impairment Psychotic Thoughts and Behaviors: None - Suicidal Ideation Suicidal Ideation: No - Homicidal Ideation Homicidal Ideation: No Goal/Treatment Plan - Goal/Treatment Plan Need for Continued Stay: Remain at risks for inpatient hospitalization, Discharge may exacerbated symptoms, Severe functional impairment Progress Toward Problem(s) and Goals/Treatment Plan: Patient education. Supportive therapy. CBT for relapse prevention. [place] for abstinence. Continue treatment as before. Patient will go to [facility] for follow-up care after discharge from the hospital. Estimated Date of D/C: 08/08/18 - Smoking Cessation Smoking Cessation Initiated: No
[2018-08-07 06:55] VITALS: TEMP 98.7
[2018-08-07] MEDS: Divalproex 500 mg DR Tab PO SCH ×2 (09:38→17:41)
--- NOTE | 2018-08-07 15:37 | PCM.PYCHPN ---
Psychiatric Progress Note - Psychiatric Progress Note Patient seen today, length of contact: 15 minutes Patient Chief Complaint: I am feeling better than yesterday. Problems Identified/Issues Discussed: Patient seen, chart reviewed, case discussed with the staff. Patient is related to illness and treatment were discussed with the patient and staff. Patient was evaluated with team. Reported compliant with treatment with no adverse effects. Tolerating treatment very well. Reported feeling better. Patient is feeling less tired and more relaxed. Mood reported as okay. Affect appropriate. Aftercare discussed with the patient. Patient needs more time for stabilization. Patient denied any suicidal or homicidal ideation at the time of Medical Problems: None reported Diagnostic Results: Reviewed DSM 5 Symptoms Update: Some improvement with treatment. Medication Change: No Medical Record Reviewed: Yes Mental Status Examination - Cognitive Function Orientation: Person, Place, Situation, Time Memory: Intact Attention: WNL Concentration: WNL Association: WNL Fund of Knowledge: [facility] Decription of patient's judgement and insights: Fair - Mood Mood: Anxious (Less than before.) - Affect Affect: Other (Appropriate) - Speech Speech: Appropriate - Formal Thought Process Formal Thought Process: No Impairment Psychotic Thoughts and Behaviors: None - Suicidal Ideation Suicidal Ideation: No - Homicidal Ideation Homicidal Ideation: No Goal/Treatment Plan - Goal/Treatment Plan Need for Continued Stay: Remain at risks for inpatient hospitalization, Discharge may exacerbated symptoms, Severe functional impairment Progress Toward Problem(s) and Goals/Treatment Plan: Patient education. Supportive therapy. CBT for relapse prevention. [place] for abstinence. Continue treatment as before. Patient will go to [facility] for follow-up care after discharge from the hospital. Estimated Date of D/C: 08/08/18 - Smoking Cessation Smoking Cessation Initiated: No
[2018-08-07 15:42] VITALS: BP 129/78; PULSE 75
--- NOTE | 2018-08-08 09:34 | PCM.PYCHDC ---
Mental Status Examination - Mental Status Examination Orientation: Person, Place, Situation, Time Memory: Intact Mood: Neutral Affect: Other (Appropriate) Speech: Appropriate Attention: WNL Concentration: WNL Association: WNL Fund of Knowledge: WNL Formal Thought Process: No Impairment Description of patient's judgement and insight: Fair Psychotic Thoughts and Behaviors: None Suicidal Ideation: No Current Homicidal Ideation?: No Discharge Summary - Discharge Note Reason for Hospitalization: Major depression, recurrent, severe r/o Bipolar d/o - depressed Opioid use disorder, severe Opioid withdrawal Cocaine use disorder, severe Sedative/hypnotic use disorder, moderate Laboratory Data: Reviewed Consultations:: List each consultation separately and include: 1. Reason for request. 2. Findings. 3. Follow-up Summary of Hospital Course include:: 1. Description of specific treatment plan utilized for patients during their course of treatmen. 2. Summarize the time- course for resolution of acute symptoms and/or regressed behaviors. 3. Describe issues identified and worked on during hospitalization. 4. Describe medication utilized. 5. Describe medical problems identified and treated. 6. Reassessment of suicide risk Summary of Hospital Course: This is a 52 year old male who is single, currently living with his mother in [place], and is unemployed. He collects unemployment. He presented to the ED for suicidal ideation, depression, heroin, cocaine and Xanax use. Patient reports he began using drugs around 20 years ago due to a variety of reasons but continues using because he experiences withdrawal symptoms of nausea, vomiting, muscle weakness, and tremors. Patient states he is currently fatigued and experiencing tremors. Patient denies homicidal or suicidal ideations now he had SI when he was admitted. He feels depressed, hopeless and pessimistic. [place] . He injected 20 bags of heroin a day for the last few weeks, which is more than usual. He has used for the past 20 years. Patient injects 1 gram of cocaine per day for the past 18 years. Patient ingests 2 bars of Xanax a day for the past year on and off. Patient has a few drinks per week. Patient smokes 1 pack per day for the last 30 years. He smokes MJ too. Patient confirms of 4 prior hospitalizations for psychiatric illness and substance abuse at [facility] on 5E. He has been to detox many times and rehab 2-3 times.Patient denies history of maintenance therapy. Following detox, he wishes to attend an intensive inpatient program. Psych Hx: depression, bipolar disorder, opioid use disorder Fam Psych: sister has substance abuse problem PMHx: denies Meds: denies Allergies: none SurgHx: denies During his stay in the hospital patient was treated with methadone taper for opiate withdrawal symptoms. Patient was also started on Depakote and mirtazapine. Patient was also started on as needed medications. Patient was also attending groups and other activities on the unit. With the above treatment patient started feeling better. Today patient was stable, ready for discharge, had no withdrawal symptoms. At the time of evaluation and discharge, patient was awake, alert and oriented x3, had no delusions, no auditory or visual hallucinations, no suicidal ideations or homicidal ideations. Patient was discharged in a stable condition. - Diagnosis (1) Major depressive disorder, recurrent severe without psychotic features Status: Acute (2) Opioid withdrawal Status: Acute (3) Opioid use disorder, severe, dependence Status: Acute (4) Cocaine use disorder, severe, dependence Status: Acute (5) Sedative, hypnotic or anxiolytic use disorder, mild, abuse Status: Acute - Final Diagnosis (DSM 5) Condition upon Discharge: STABLE Disposition: HOME/ ROUTINE Follow-up Treatment Plan: Patient will go to [facility] for follow-up care after discharge from the hospital. Prescriptions/Medication Reconciliation: Divalproex [Depakote DR] 500 mg PO BID #60 tcp Gabapentin [Neurontin] 300 mg PO TID #90 cap Mirtazapine [Remeron] 15 mg PO HS #30 tab traZODone [Desyrel] 100 mg PO HS PRN #30 tab PRN Reason: Insomnia - Smoking Cessation Smoking Cessation Medication prescribed: No - Antipsychotic Medications Pt discharged on 2 or more routine antipsychotic medications: No
[2018-08-08] MEDS: Divalproex 500 mg DR Tab PO SCH (09:36)
== END 2018-08-08 11:23 | disposition home or self-care (01) | DRG 751 ==
LOC: C.ER 08:55 → C.5E 12:15
PROVIDERS: ADMIT Psychiatry & Neurology Psychiatry; ATTEND Psychiatry & Neurology Psychiatry
PROC: GZ58ZZZ Individual Psychotherapy, Cognitive-Behavioral (ICD-10-PCS; principal; 2018-08-03)
PROC: HZ2ZZZZ Detoxification Services for Substance Abuse Treatment (ICD-10-PCS; 2018-08-03)
PROC: HZ52ZZZ Individual Psychotherapy for Substance Abuse Treatment, Cognitive-Behavioral (ICD-10-PCS; 2018-08-03)
PROC: HZ59ZZZ Individual Psychotherapy for Substance Abuse Treatment, Supportive (ICD-10-PCS; 2018-08-03)
PROC: HZ42ZZZ Group Counseling for Substance Abuse Treatment, Cognitive-Behavioral (ICD-10-PCS; 2018-08-03)
PROC: HZ46ZZZ Group Counseling for Substance Abuse Treatment, Psychoeducation (ICD-10-PCS; 2018-08-03)
PROC: GZHZZZZ Group Psychotherapy (ICD-10-PCS; 2018-08-03)
PROC: GZ56ZZZ Individual Psychotherapy, Supportive (ICD-10-PCS; 2018-08-03)
PROC: HZ56ZZZ Individual Psychotherapy for Substance Abuse Treatment, Psychoeducation (ICD-10-PCS; 2018-08-03)
DX: F33.2 Major depressive disorder, recurrent severe without psychotic features (principal); R45.851 Suicidal ideations; F13.20 Sedative, hypnotic or anxiolytic dependence, uncomplicated; F14.20 Cocaine dependence, uncomplicated; F11.23 Opioid dependence with withdrawal; F17.210 Nicotine dependence, cigarettes, uncomplicated; F41.9 Anxiety disorder, unspecified; G47.00 Insomnia, unspecified

== ENCOUNTER 2018-08-12 17:08 | Observation (INO) | payer OTHER ==
[2018-08-12 17:08] VITALS: BMI 31.5
[2018-08-12 17:27] VITALS: RESP 20
--- NOTE | 2018-08-12 18:54 | RAD ---
HISTORY: cp COMPARISON: Chest x-ray performed 03/19/18 TECHNIQUE: Chest PA and lateral, 2 views FINDINGS: Examination limited by habitus. LUNGS: No focal consolidation. Please note that chest x-ray has limited sensitivity for the detection of pulmonary masses. PLEURA: No significant pleural effusion identified. No definite pneumothorax . CARDIOVASCULAR: Heart size appears borderline enlarged. Atherosclerotic calcifications of the aorta. OSSEOUS STRUCTURES: Degenerative changes. VISUALIZED UPPER ABDOMEN: Unremarkable. OTHER FINDINGS: None. IMPRESSION: Borderline cardiomegaly. No focal consolidation.
--- NOTE | 2018-08-12 19:22 | C.PDOC ---
History Of Present Illness 52-year-old male presents to the ED for evaluation of burning sensation to throat, sweats, sharp left-sided chest pain, and numbness to left arm which occurred after smoking a cigarette earlier today. Patient states his symptoms lasted around one hour and then self-resolved. He states his symptoms have improved and denies nausea, vomiting, other drug use, past medical history, or history of similar symptoms in the past. Time Seen by Provider: 08/12/18 18:13 Chief Complaint (Nursing): Chest Pain History Per: Patient History/Exam Limitations: no limitations Onset/Duration Of Symptoms: Hrs Current Symptoms Are (Timing): Better Quality: "Pain" Additional History Per: Patient Past Medical History Reviewed: Historical Data, Nursing Documentation, Vital Signs Vital Signs: Last Vital Signs Temp 98.8 F 08/12/18 17:23 Pulse 74 08/12/18 17:23 Resp 20 08/12/18 17:23 BP 161/81 H 08/12/18 17:23 Pulse Ox 100 08/12/18 17:23 - Medical History PMH: Anxiety, Bipolar Disorder, Depression, Hepatitis (C) Denies: Diabetes, HIV, HTN, Chronic Kidney Disease, Seizures, Sexually Tr ansmitted Disease Surgical History: No Surg Hx - [facility] DETOXIFICATION SERVICES FOR SUBSTANCE ABUSE TREATMENT (08/03/18) GROUP FLUE LINING DIPPER FOR SUBSTANCE ABUSE TREATMENT, PSYCHOEDUCATION (08/03/18) GROUP FLUE LINING DIPPER FOR SUBSTANCE ABUSE, COGNITIVE BEHAVIORAL (08/03/18) GROUP PSYCHOTHERAPY (08/03/18) INDIV PSYCHOTHERAPY FOR SUBSTANCE ABUSE TREATMENT, SUPPORT (08/03/18) INDIV PSYCHOTHERAPY FOR SUBSTANCE ABUSE, COGNITIV BEHAVIORAL (08/03/18) INDIV PSYCHOTHERAPY FOR SUBSTANCE ABUSE, PSYCHOEDUCATION (08/03/18) INDIVIDUAL PSYCHOTHERAPY, COGNITIVE-BEHAVIORAL (08/03/18) INDIVIDUAL PSYCHOTHERAPY, SUPPORTIVE (08/03/18) MEDICATION MANAGEMENT (06/12/18) MEDS MGMT FOR SUBSTANCE ABUSE TREATMENT, METHADONE MAINT (06/12/18) MEDS MGMT FOR SUBSTANCE ABUSE TREATMENT, NICOTINE REPLACE (06/12/18) Family History: States: Unknown Family Hx - Social History Hx Tobacco Use: Yes Hx Alcohol Use: No Hx Substance Use: Yes (heroin) - Immunization History Hx Tetanus Toxoid Vaccination: No Hx Influenza Vaccination: Yes Hx Pneumococcal Vaccination: Yes Review Of Systems Except As Marked, All Systems Reviewed And Found Negative. Gastrointestinal: Negative for: Nausea Neurological: Negative for: Altered Mental Status Physical Exam - Physical Exam Additional Physical Exam Comments: Constitutional: No acute distress. Head: Normocephalic. Atraumatic. Eyes: PERRL. ENT: Moist mucous membranes. Neck: Supple. Cardiovascular: Regular rate. Radial pulse 2+ bilaterally. Chest: No tenderness. Respiratory: Clear to auscultation bilaterally. GI: Soft. Nontender. Nondistended. Back: No CVA tenderness. Musculoskeletal: No tenderness or swelling of extremities. Skin: No rash. Neurologic: Alert, no focal deficit. ED Course And Treatment - Laboratory Results Result Diagrams: 08/12/18 19:25 08/12/18 19:25 O2 Sat by Pulse Oximetry: 100 - Other Rad CXR X-Ray: Viewed By Me, Read By Radiologist Interpretation: HISTORY: cp. COMPARISON: Chest x-ray performed 03/19/18. TECHNIQUE: Chest PA and lateral, 2 views. FINDINGS: Examination limited by habitus. LUNGS: No focal consolidation. Please note that chest x-ray has limited sensitivity for the detection of pulmonary masses. PLEURA: No significant pleural effusion identified. No definite pneumothorax . CARDIOVASCULAR: Heart size appears borderline enlarged. Atherosclerotic calcifications of the aorta. OSSEOUS STRUCTURES: Degenerative changes. VISUALIZED UPPER ABDOMEN: Unremarkable. OTHER FINDINGS: None. IMPRESSION: Borderline cardiomegaly. No focal consolidation. Medical Decision Making Medical Decision Making: EKG: Normal Sinus rhythm at rate 70bpm. No ST/T wave changes. Disposition - Disposition Disposition: HOME/ ROUTINE Disposition Time: 20:27 Condition: FAIR Forms: [facility] (Lao) - POA Core Measure Indicators: Chest Pain - Clinical Impression Clinical Impression: Chest pain - Scribe Statement The provider has reviewed the documentation as recorded by the Scribe (clark Ellis) Provider Attestation: All medical record entries made by the Scribe were at my direction and personally dictated by me. I have reviewed the chart and agree that the record accurately reflects my personal performance of the history, physical exam, medical decision making, and the department course for this patient. I have also personally directed, reviewed, and agree with the discharge instructions and disposition.
[2018-08-12] MEDS ORDERED: Aspirin 325 mg EC Tablets PO ONE (19:25)
[2018-08-12 19:51] LABS: BASO % 0.2 % (0.0-2.0); EOS # 0.3 K/uL (0.0-0.7); EOS % 3.4 % (0.0-4.0); HEMOGLOBIN 14.2 g/dL (12.0-18.0); LYMPH # 1.7 K/uL (1.0-4.3); LYMPH % 18.7 % (20.0-40.0); MEAN CELL VOLUME 87.6 fL (80.0-94.0); MEAN CORPUSCULAR HEMOGLOBIN 29.7 pg (27.0-31.0); MEAN PLATELET VOLUME 7.5 fL (7.2-11.7); MONO % 11.5 % (0.0-10.0); NEUT # 5.9 K/uL (1.8-7.0); NEUT % 66.2 % (50.0-75.0); RBC 4.77 Mil/uL (4.40-5.90); RED CELL DISTRIBUTION WIDTH 13.8 % (11.5-14.5)
[2018-08-12 20:10] LABS: ALB/GLOB RATIO 1.4 (1.0-2.1); ALBUMIN 4.2 g/dL (3.5-5.0); ALT/SGPT 53 U/L (21-72); AST/SGOT 41 U/L (17-59); BLOOD UREA NITROGEN 14 mg/dL (9-20); CALCIUM 9.5 mg/dl (8.6-10.4); GFR NON-AFRICAN AMERICAN > 60
[2018-08-12 20:33] LABS: BARBITURATES, UR NEGATIVE (NEGATIVE); BENZODIAZEPINES, UR NEGATIVE (NEGATIVE); PHENCYCLIDINE, UR NEGATIVE (NEGATIVE)
--- NOTE | 2018-08-12 21:12 | CP.PCM.HP ---
<Rafael Meza - Last Filed: 08/13/18 05:52> History of Present Illness - History of Present Illness History of Present Illness: 52 year old male with a past medical history of bipolar, depression, hep c reactive and opiod abuse presents to the hospital after reporting left sided chest pain with radiation to his left arm that began after smoking a cigarette earlier today. Patient states he was doing some light cleaning when he started to experience the chest pain. Patient states its sharp in nature and rates its a 1/10 in severity. Patient reports it lasted about one hour in total and then resolved. He reports walking outside to get air and removing his cap helped the symptoms. Patient reports last time doing heroin and cocaine earlier in the day. He denies any syncopal episodes, nausea, vomiting, syncopal episodes, palpitations, dizziness, changes in vision, numbness or tingling in the extremities or any other complaints. PMD: Denies Medical history: bipolar, depression, opiod abuse, hep c reactive Allergies: Denies Surgical history: Denies Family history: Mom:Pacemaker, Dad:Diabetes Medications: Denies Social history: Lives in [place] with mom. Unemployed. Does 1 gm of cocaine x 18 years, Injects 20 bags of heroin daily. Social alcohol. Full Code Present on Admission - Present on Admission Any Indicators Present on Admission: No Review of Systems - Constitutional Constitutional: Excessive Sweating. absent: Daytime Sleepiness, Malaise - EENT Eyes: absent: Change in Vision, Decreased Night Vision, Loss of Peripheral Vision, Tunnel Vision Nose/Mouth/Throat: absent: Nasal Discharge, Nasal Obstruction, Bleeding Gums - Cardiovascular Cardiovascular: Chest Pain. absent: Chest Pain at Rest, Chest Pain with Activity, Edema, Orthopnea, Palpitations, Syncope - Respiratory Respiratory: absent: Hemoptysis, Dyspnea on Exertion, Wheezing, Snoring, Chest Congestion - Gastrointestinal Gastrointestinal: absent: Bloating, Diarrhea, Dyspepsia, Hematochezia, Loose Stools - Musculoskeletal Musculoskeletal: absent: Back Pain, Deformity, Joint Swelling, Neck Pain, Numbness - Integumentary Integumentary: absent: Bleeding Lesions, Lesions, New Lesions, Skin Pain, Skin Ulcer - Neurological Neurological: absent: Abnormal Movements, Numbness, Memory Loss, Tingling, Tremor, Vertigo, Weakness - Psychiatric Psychiatric: absent: Memory Loss - Endocrine Endocrine: absent: Cold Intolorance, Flushing, Palpitations, Polydipsia, Polyphagia, Polyuria - Hematologic/Lymphatic Hematologic: absent: Easy Bleeding, Easy Bruising Past Patient History - Past Medical History & Family History Past Medical History?: Yes - Past Social History Smoking Status: Heavy Smoker > 10 Cigarettes Daily - CARDIAC Hx Hypertension: No - PULMONARY Hx Tuberculosis: No - NEUROLOGICAL Hx Seizures: No - HEENT Hx HEENT Problems: No - RENAL Hx Chronic Kidney Disease: No - ENDOCRINE/METABOLIC Hx Endocrine Disorders: No - HEMATOLOGICAL/ONCOLOGICAL Hx Human Immunodeficiency Virus (HIV): No - INTEGUMENTARY Hx Dermatological Problems: No - MUSCULOSKELETAL/RHEUMATOLOGICAL Hx Musculoskeletal Disorders: No Hx Falls: No - GASTROINTESTINAL Hx Gastrointestinal Disorders: No - GENITOURINARY/GYNECOLOGICAL Hx Sexually Transmitted Disorders: No - PSYCHIATRIC Hx Anxiety: Yes Hx Bipolar Disorder: Yes Hx Depression: Yes Hx Substance Use: Yes (heroin) - SURGICAL HISTORY Hx Surgeries: No - ANESTHESIA Hx Anesthesia: No Hx Anesthesia Reactions: No Meds Allergies/Adverse Reactions: Allergies Allergy/AdvReac Type Severity Reaction Status Date / Time shellfish Allergy Uncoded 08/03/18 09:04 Physical Exam - Constitutional Appears: Well, No Acute Distress - Head Exam Head Exam: ATRAUMATIC, NORMAL INSPECTION, NORMOCEPHALIC - Eye Exam Eye Exam: EOMI, Normal appearance. absent: Periorbital swelling Pupil Exam: NORMAL ACCOMODATION, PERRL - ENT Exam ENT Exam: Mucous Membranes Moist, Normal Exam - Neck Exam Neck exam: Positive for: Normal Inspection - Respiratory Exam Respiratory Exam: Clear to Auscultation Bilateral, NORMAL BREATHING PATTERN. absent: Decreased Breath Sounds, Stridor - Cardiovascular Exam Cardiovascular Exam: REGULAR RHYTHM, +S1, +S2. absent: Clicks, JVD, +S4, Systolic Murmur - GI/Abdominal Exam GI & Abdominal Exam: Normal Bowel Sounds - Back Exam Back exam: NORMAL INSPECTION. absent: CVA tenderness (L), CVA tenderness (R), vertebral tenderness - Neurological Exam Neurological exam: CN II-XII Intact, Normal Gait, Oriented x3 - Psychiatric Exam Psychiatric exam: Normal Affect, Normal Mood - Skin Skin Exam: Dry, Intact, Normal Color, Warm Results - Vital Signs Recent Vital Signs: Last Vital Signs Temp 98.8 F 08/12/18 17:23 Pulse 74 08/12/18 17:23 Resp 20 08/12/18 17:23 BP 161/81 H 08/12/18 17:23 Pulse Ox 100 08/12/18 20:58 - Labs Result Diagrams: 08/12/18 19:25 08/12/18 19:25 Labs: Laboratory Results - last 24 hr 08/12/18 08/12/18 08/12/18 19:25 19:25 19:40 WBC 9.0 RBC 4.77 Hgb 14.2 Hct 41.7 MCV 87.6 MCH 29.7 MCHC 34.0 RDW 13.8 Plt Count 272 MPV 7.5 Neut % (Auto) 66.2 Lymph % (Auto) 18.7 L [place] % (Auto) 11.5 H Eos % (Auto) 3.4 Baso % (Auto) 0.2 Neut # (Auto) 5.9 Lymph # (Auto) 1.7 [place] # (Auto) 1.0 H Eos # (Auto) 0.3 Baso # (Auto) 0.0 Sodium 141 Potassium 4.4 Chloride 101 Carbon Dioxide 32 H Anion Gap 12 BUN 14 Creatinine 0.8 Est GFR ( Amer) > 60 Est GFR (Non-Af Amer) > 60 Random Glucose 84 Calcium 9.5 Total Bilirubin 0.3 AST 41 ALT 53 Alkaline Phosphatase 63 Total Creatine Kinase 176 H CK-MB (Mass) 2.00 Troponin I < 0.0120 Total Protein 7.2 Albumin 4.2 Globulin 2.9 Albumin/Globulin Ratio 1.4 Urine Methadone Screen Negative Ur Barbiturates Screen Negative Ur Phencyclidine Scrn Negative Ur Amphetamines Screen Negative U Benzodiazepines Scrn Negative U Cannabinoids Screen Negative Assessment & Plan - Assessment and Plan (Free Text) Plan: 1.Chest pain r/o acs EKG on admission: NSR @70BPM. No ST/T changes CXR: borderline cardiomegaly Troponin (-)x1. Will trend troponins UDS pending :Positive for cocaine and heroin :Avoid beta blockers in this patient. TSH ordered. Will f/u with results Hemoglobin A1C ordered .Will f/u with reuslts. Lipid panel ordered. Will f/u with results Cardiology consulted Dr. Fischer--> Help appreciated LUI score:0 2.hx of Cocaine use Previous admissions patient positive for Cocaine on UDS UDS: positive for cocaine. 3. Hx of Heroin use Previous admissions patient postiive for opiates on UDS Psychiatry consulted Dr. Yi --> Help appreciated 4. hx of Smoking use -Nicoderm patch 5. hx of Hep C reactive -Hep c viral load ordered. Will f/u with results. PPX -Heparin -Pepcid Plan discussed with Attending Dr. Molina. Rafael Meza, PGY-2 <Russ Molina - Last Filed: 08/13/18 06:25> Results - Vital Signs Recent Vital Signs: Last Vital Signs Temp 98.3 F 08/13/18 04:23 Pulse 51 L 08/13/18 04:23 Resp 20 08/13/18 04:23 BP 120/62 08/13/18 04:23 Pulse Ox 96 08/13/18 04:23 - Labs Result Diagrams: 08/12/18 19:25 08/12/18 19:25 Labs: Laboratory Results - last 24 hr 08/12/18 08/12/18 08/12/18 19:25 19:25 19:40 WBC 9.0 RBC 4.77 Hgb 14.2 Hct 41.7 MCV 87.6 MCH 29.7 MCHC 34.0 RDW 13.8 Plt Count 272 MPV 7.5 Neut % (Auto) 66.2 Lymph % (Auto) 18.7 L [place] % (Auto) 11.5 H Eos % (Auto) 3.4 Baso % (Auto) 0.2 Neut # (Auto) 5.9 Lymph # (Auto) 1.7 [place] # (Auto) 1.0 H Eos # (Auto) 0.3 Baso # (Auto) 0.0 Sodium 141 Potassium 4.4 Chloride 101 Carbon Dioxide 32 H Anion Gap 12 BUN 14 Creatinine 0.8 Est GFR ( Amer) > 60 Est GFR (Non-Af Amer) > 60 Random Glucose 84 Calcium 9.5 Total Bilirubin 0.3 AST 41 ALT 53 Alkaline Phosphatase 63 Total Creatine Kinase 176 H CK-MB (Mass) 2.00 Troponin I < 0.0120 Total Protein 7.2 Albumin 4.2 Globulin 2.9 Albumin/Globulin Ratio 1.4 Urine Opiates Screen Positive H Urine Methadone Screen Negative Ur Barbiturates Screen Negative Ur Phencyclidine Scrn Negative Ur Amphetamines Screen Negative U Benzodiazepines Scrn Negative U Oth Cocaine Metabols Positive H U Cannabinoids Screen Negative 08/13/18 02:56 WBC RBC Hgb Hct MCV MCH MCHC RDW Plt Count MPV Neut % (Auto) Lymph % (Auto) [place] % (Auto) Eos % (Auto) Baso % (Auto) Neut # (Auto) Lymph # (Auto) [place] # (Auto) Eos # (Auto) Baso # (Auto) Sodium Potassium Chloride Carbon Dioxide Anion Gap BUN Creatinine Est GFR ( Amer) Est GFR (Non-Af Amer) Random Glucose Calcium Total Bilirubin AST ALT Alkaline Phosphatase Total Creatine Kinase 142 CK-MB (Mass) 1.71 Troponin I < 0.0120 Total Protein Albumin Globulin Albumin/Globulin Ratio Urine Opiates Screen Urine Methadone Screen Ur Barbiturates Screen Ur Phencyclidine Scrn Ur Amphetamines Screen U Benzodiazepines Scrn U Oth Cocaine Metabols U Cannabinoids Screen Assessment & Plan - Date & Time Date: 08/13/18 (I have seen and examined the patient. I agree with the findings and plan of care as documented by Dr. Meza. Patient with chest pain. Multi drug abuse. Avoid beta blockers. Aspirin and Statin. ROMIx3 with EKG. Psych consult. Also history of smoking. Counseled on Cessation. Monitor for acute changes.) Time: 06:24 Attending/Attestation - Attestation I have personally seen and examined this patient.: Yes I have fully participated in the care of the patient.: Yes I have reviewed all pertinent clinical information: Yes
[2018-08-12 22:55] LABS: OPIATES, UR POSITIVE (NEGATIVE)
[2018-08-13 03:29] LABS: CK-MB 1.71 ng/mL (0.0-3.38)
[2018-08-13 04:25] VITALS: BP 120/62; TEMP 98.3; O2SAT 96
[2018-08-13 06:31] LABS: BASO % 0.4 % (0.0-2.0); EOS # 0.4 K/uL (0.0-0.7); EOS % 5.4 % (0.0-4.0); HEMOGLOBIN 12.9 g/dL (12.0-18.0); LYMPH # 2.2 K/uL (1.0-4.3); LYMPH % 32.3 % (20.0-40.0); MEAN CELL VOLUME 87.5 fL (80.0-94.0); MEAN CORPUSCULAR HEMOGLOBIN 30.6 pg (27.0-31.0); MEAN CORPUSCULAR HGB CONC 34.9 g/dL (33.0-37.0); MEAN PLATELET VOLUME 7.7 fL (7.2-11.7); MONO # 0.8 K/uL (0.0-0.8); MONO % 11.5 % (0.0-10.0); NEUT # 3.5 K/uL (1.8-7.0); NEUT % 50.4 % (50.0-75.0); NRBC % 0.1 % (0.0-2.0); RBC 4.23 Mil/uL (4.40-5.90); RED CELL DISTRIBUTION WIDTH 13.8 % (11.5-14.5); WHITE BLOOD COUNT 6.9 K/uL (4.8-10.8)
[2018-08-13 07:19] LABS: LDL CHOLESTEROL 78 mg/dL (0-129)
[2018-08-13 07:28] LABS: ALB/GLOB RATIO 1.4 (1.0-2.1); ALBUMIN 3.4 g/dL (3.5-5.0); ALT/SGPT 49 U/L (21-72); AST/SGOT 36 U/L (17-59); BLOOD UREA NITROGEN 14 mg/dL (9-20); CALCIUM 8.8 mg/dl (8.6-10.4); GFR NON-AFRICAN AMERICAN > 60; HDL CHOLESTEROL 35 mg/dL (30-70)
--- NOTE | 2018-08-13 07:36 | CP.PCM.PN ---
Subjective - Date & Time of Evaluation Date of Evaluation: 08/13/18 Time of Evaluation: 07:28 Objective - Vital Signs/Intake and Output Vital Signs (last 24 hours): Temp Pulse Resp BP Pulse Ox 98.3 F 51 L 20 120/62 96 08/13/18 04:23 08/13/18 04:23 08/13/18 04:23 08/13/18 04:23 08/13/18 04:23 Intake and Output: 08/13/18 08/13/18 06:59 18:59 Intake Total 360 Balance 360 - Medications Medications: Current Medications Aspirin (Ecotrin) 81 mg PO DAILY [facility] Famotidine (Pepcid) 20 mg PO DAILY [facility] Heparin Sodium (Porcine) (Heparin) 5,000 units SC Q12 [facility] Nicotine (Nicoderm Cq) 1 patch TD DAILY [facility] - Labs Labs: 08/13/18 06:23 Assessment and Plan - Assessment and Plan (Free Text) Assessment: 52 year old male with a past medical history of bipolar, depression, hep c reactive and opiod abuse presents to the hospital after reporting left sided chest pain with radiation to his left arm that began after smoking a cigarette. Patient admitted to telemetry for ACS rule-out Chest pain r/o acs - EKG on admission: NSR @70BPM. No ST/T changes - CXR: borderline cardiomegaly - Troponin negative x2 - F/U Trend - UDS - Positive for cocaine and heroin - Avoid beta blockers in this patient. - TSH - Hemoglobin A1C - Lipid panel wnl - Cardiology consulted (Dr. Fischer); recommendations appreciated - LUI score:0 - Monitor in Telemetry History of Hep C reactive - Hep c viral load ordered - Will f/u with results. History of Cocaine Abuse - Previous admissions patient positive for Cocaine on UDS - UDS: positive for cocaine. History of Heroin Abuse - Previous admissions patient postiive for opiates on UDS - UDS positive for opiates - Psychiatry consulted Dr. Yi; recommendations appreciated History of tobacco use disorder - Nicoderm patch PPX -DVT: SCD, Heparin -GI: Pepcid
--- NOTE | 2018-08-13 07:55 | CP.PCM.CON ---
History of Present Illness - History of Present Illness History of Present Illness: Patient seen examined. 52 year old male with no PMH presents with chest p[ain. urine tox shows patient is cocaine positive. troponin is negative. recommend d/c home if 3rd troponin is negative. substance abuse counselling. Past Patient History - Past Medical History & Family History Past Medical History?: Yes - Past Social History Smoking Status: Heavy Smoker > 10 Cigarettes Daily - CARDIAC Hx Hypertension: No - PULMONARY Hx Tuberculosis: No - NEUROLOGICAL Hx Seizures: No - HEENT Hx HEENT Problems: No - RENAL Hx Chronic Kidney Disease: No - ENDOCRINE/METABOLIC Hx Endocrine Disorders: No - HEMATOLOGICAL/ONCOLOGICAL Hx Human Immunodeficiency Virus (HIV): No - INTEGUMENTARY Hx Dermatological Problems: No - MUSCULOSKELETAL/RHEUMATOLOGICAL Hx Musculoskeletal Disorders: No Hx Falls: No - GASTROINTESTINAL Hx Gastrointestinal Disorders: No - GENITOURINARY/GYNECOLOGICAL Hx Sexually Transmitted Disorders: No - PSYCHIATRIC Hx Anxiety: Yes Hx Bipolar Disorder: Yes Hx Depression: Yes Hx Substance Use: Yes (heroin) - SURGICAL HISTORY Hx Surgeries: No - ANESTHESIA Hx Anesthesia: No Hx Anesthesia Reactions: No Meds Allergies/Adverse Reactions: Allergies Allergy/AdvReac Type Severity Reaction Status Date / Time shellfish Allergy Uncoded 08/03/18 09:04 - Medications Medications: Current Medications Aspirin (Ecotrin) 81 mg PO DAILY [facility] Famotidine (Pepcid) 20 mg PO DAILY [facility] Heparin Sodium (Porcine) (Heparin) 5,000 units SC Q12 [facility] Nicotine (Nicoderm Cq) 1 patch TD DAILY [facility] Results - Vital Signs Recent Vital Signs: Last Vital Signs Temp 98.3 F 08/13/18 04:23 Pulse 51 L 08/13/18 04:23 Resp 20 08/13/18 04:23 BP 120/62 08/13/18 04:23 Pulse Ox 96 08/13/18 04:23 - Labs Result Diagrams: 08/13/18 06:23 08/13/18 06:23 Labs: Laboratory Results - last 24 hr 08/12/18 08/12/18 08/12/18 19:25 19:25 19:40 WBC 9.0 RBC 4.77 Hgb 14.2 Hct 41.7 MCV 87.6 MCH 29.7 MCHC 34.0 RDW 13.8 Plt Count 272 MPV 7.5 Neut % (Auto) 66.2 Lymph % (Auto) 18.7 L [place] % (Auto) 11.5 H Eos % (Auto) 3.4 Baso % (Auto) 0.2 Neut # (Auto) 5.9 Lymph # (Auto) 1.7 [place] # (Auto) 1.0 H Eos # (Auto) 0.3 Baso # (Auto) 0.0 Sodium 141 Potassium 4.4 Chloride 101 Carbon Dioxide 32 H Anion Gap 12 BUN 14 Creatinine 0.8 Est GFR ( Amer) > 60 Est GFR (Non-Af Amer) > 60 Random Glucose 84 Calcium 9.5 Phosphorus Magnesium Total Bilirubin 0.3 AST 41 ALT 53 Alkaline Phosphatase 63 Total Creatine Kinase 176 H CK-MB (Mass) 2.00 Troponin I < 0.0120 Total Protein 7.2 Albumin 4.2 Globulin 2.9 Albumin/Globulin Ratio 1.4 Triglycerides Cholesterol LDL Cholesterol Direct HDL Cholesterol TSH 3rd Generation Urine Opiates Screen Positive H Urine Methadone Screen Negative Ur Barbiturates Screen Negative Ur Phencyclidine Scrn Negative Ur Amphetamines Screen Negative U Benzodiazepines Scrn Negative U Oth Cocaine Metabols Positive H U Cannabinoids Screen Negative 08/13/18 08/13/18 08/13/18 02:56 06:23 06:23 WBC 6.9 RBC 4.23 L Hgb 12.9 Hct 37.1 MCV 87.5 MCH 30.6 MCHC 34.9 RDW 13.8 Plt Count 247 MPV 7.7 Neut % (Auto) 50.4 Lymph % (Auto) 32.3 [place] % (Auto) 11.5 H Eos % (Auto) 5.4 H Baso % (Auto) 0.4 Neut # (Auto) 3.5 Lymph # (Auto) 2.2 [place] # (Auto) 0.8 Eos # (Auto) 0.4 Baso # (Auto) 0.0 Sodium 141 Potassium 4.0 Chloride 104 Carbon Dioxide 30 Anion Gap 11 BUN 14 Creatinine 0.8 Est GFR ( Amer) > 60 Est GFR (Non-Af Amer) > 60 Random Glucose 90 Calcium 8.8 Phosphorus 3.8 Magnesium 2.2 Total Bilirubin 0.2 AST 36 ALT 49 Alkaline Phosphatase 56 Total Creatine Kinase 142 CK-MB (Mass) 1.71 Troponin I < 0.0120 Total Protein 5.8 L Albumin 3.4 L Globulin 2.4 Albumin/Globulin Ratio 1.4 Triglycerides 57 Cholesterol 111 LDL Cholesterol Direct 78 HDL Cholesterol 35 TSH 3rd Generation 1.59 Urine Opiates Screen Urine Methadone Screen Ur Barbiturates Screen Ur Phencyclidine Scrn Ur Amphetamines Screen U Benzodiazepines Scrn U Oth Cocaine Metabols U Cannabinoids Screen
[2018-08-13 08:06] VITALS: PULSE 54
--- NOTE | 2018-08-13 12:37 | CARD ---
APPROVED REPORT Date of service: 08/13/2018 EKG Measurement Heart [id number] <Conclusion> Sinus bradycardia Otherwise normal ECG
--- NOTE | 2018-08-13 14:31 | CP.PCM.DIS ---
<Jakob Patel - Last Filed: 08/13/18 14:14> Provider - Provider Date of Admission: 08/12/18 20:55 Attending physician: Russ Molina MD Consults: 08/12/18 23:05 Cardiology Consult Routine Comment: Consulting Provider: Kaylene Fischer Consulting Physician: Kaylene Fischer Reason for Consult: chest pain r/o acs, hx of cocaine abuse/heroine abuse 08/12/18 23:07 Psychiatry Consult Routine Comment: Consulting Provider: Veronika Yi Consulting Physician: Veronika Yi Reason for Consult: hx of heroin abuse, depression, bipolar disorder Time Spent in preparation of Discharge (in minutes): 45 Hospital Course - Lab Results Lab Results: Most Recent Lab Values WBC 6.9 K/uL (4.8-10.8) 08/13/18 06:23 RBC 4.23 Mil/uL (4.40-5.90) L 08/13/18 06:23 Hgb 12.9 g/dL (12.0-18.0) 08/13/18 06:23 Hct 37.1 % (35.0-51.0) 08/13/18 06:23 MCV 87.5 fL (80.0-94.0) 08/13/18 06:23 MCH 30.6 pg (27.0-31.0) 08/13/18 06:23 MCHC 34.9 g/dL (33.0-37.0) 08/13/18 06:23 RDW 13.8 % (11.5-14.5) 08/13/18 06:23 Plt Count 247 K/uL (130-400) 08/13/18 06:23 MPV 7.7 fL (7.2-11.7) 08/13/18 06:23 Neut % (Auto) 50.4 % (50.0-75.0) 08/13/18 06:23 Lymph % (Auto) 32.3 % (20.0-40.0) 08/13/18 06:23 [place] % (Auto) 11.5 % (0.0-10.0) H 08/13/18 06:23 Eos % (Auto) 5.4 % (0.0-4.0) H 08/13/18 06:23 Baso % (Auto) 0.4 % (0.0-2.0) 08/13/18 06:23 Neut # (Auto) 3.5 K/uL (1.8-7.0) 08/13/18 06:23 Lymph # (Auto) 2.2 K/uL (1.0-4.3) 08/13/18 06:23 [place] # (Auto) 0.8 K/uL (0.0-0.8) 08/13/18 06:23 Eos # (Auto) 0.4 K/uL (0.0-0.7) 08/13/18 06:23 Baso # (Auto) 0.0 K/uL (0.0-0.2) 08/13/18 06:23 Sodium 141 mmol/L (132-148) 08/13/18 06:23 Potassium 4.0 mmol/L (3.6-5.2) 08/13/18 06:23 Chloride 104 mmol/L (98-107) 08/13/18 06:23 Carbon Dioxide 30 mmol/L (22-30) 08/13/18 06:23 Anion Gap 11 (10-20) 08/13/18 06:23 BUN 14 mg/dL (9-20) 08/13/18 06:23 Creatinine 0.8 mg/dL (0.8-1.5) 08/13/18 06:23 Est GFR ( Amer) > 60 08/13/18 06:23 Est GFR (Non-Af Amer) > 60 08/13/18 06:23 Random Glucose 90 mg/dL (75-110) 08/13/18 06:23 Hemoglobin A1c 5.7 % (4.2-6.5) 08/13/18 06:23 Calcium 8.8 mg/dl (8.6-10.4) 08/13/18 06:23 Phosphorus 3.8 mg/dL (2.5-4.5) 08/13/18 06:23 Magnesium 2.2 mg/dL (1.6-2.3) 08/13/18 06:23 Total Bilirubin 0.2 mg/dL (0.2-1.3) 08/13/18 06:23 AST 36 U/L (17-59) 08/13/18 06:23 ALT 49 U/L (21-72) 08/13/18 06:23 Alkaline Phosphatase 56 U/L (38-126) 08/13/18 06:23 Total Creatine Kinase 142 U/L (55-170) 08/13/18 02:56 CK-MB (Mass) 1.71 ng/mL (0.0-3.38) 08/13/18 02:56 Troponin I < 0.0120 ng/mL (0.00-0.120) 08/13/18 02:56 Total Protein 5.8 g/dL (6.3-8.3) L 08/13/18 06:23 Albumin 3.4 g/dL (3.5-5.0) L 08/13/18 06:23 Globulin 2.4 gm/dL (2.2-3.9) 08/13/18 06:23 Albumin/Globulin Ratio 1.4 (1.0-2.1) 08/13/18 06:23 Triglycerides 57 mg/dL (0-149) 08/13/18 06:23 Cholesterol 111 mg/dL (0-199) 08/13/18 06:23 LDL Cholesterol Direct 78 mg/dL (0-129) 08/13/18 06:23 HDL Cholesterol 35 mg/dL (30-70) 08/13/18 06:23 TSH 3rd Generation 1.59 mIU/L (0.46-4.68) 08/13/18 06:23 Urine Opiates Screen Positive (NEGATIVE) H 08/12/18 19:40 Urine Methadone Screen Negative (NEGATIVE) 08/12/18 19:40 Ur Barbiturates Screen Negative (NEGATIVE) 08/12/18 19:40 Ur Phencyclidine Scrn Negative (NEGATIVE) 08/12/18 19:40 Ur Amphetamines Screen Negative (NEGATIVE) 08/12/18 19:40 U Benzodiazepines Scrn Negative (NEGATIVE) 08/12/18 19:40 U Oth Cocaine Metabols Positive (NEGATIVE) H 08/12/18 19:40 U Cannabinoids Screen Negative (NEGATIVE) 08/12/18 19:40 - Hospital Course Hospital Course: Upon Admission: 52 year old male with a past medical history of bipolar, depression, hep c reactive and opiod abuse presents to the hospital after reporting left sided chest pain with radiation to his left arm that began after smoking a cigarette earlier today. Patient states he was doing some light cleaning when he started to experience the chest pain. Patient states its sharp in nature and rates its a 1/10 in severity. Patient reports it lasted about one hour in total and then resolved. He reports walking outside to get air and removing his cap helped the symptoms. Patient reports last time doing heroin and cocaine earlier in the day. He denies any syncopal episodes, nausea, vomiting, syncopal episodes, palpitations, dizziness, changes in vision, numbness or tingling in the extremities or any other complaints. See report for details. Hospital Course: On 08/13/18, Patient eloped the hospital. No CODE ECHO was called. Per Nurse, attempted to reach House Doctor, however no immediate response; primary team was not notified until Patient had already left the hospital. Thus, Patient left the hospital prior to being seen and/or evaluated and/or examined this morning by a physician. Thus, a complete progress note and/or physical exam was unobtainable. Discussed with Dr. Haines Discharge Exam - Additional Findings Additional findings: Patient eloped hospital prior to being seen and/or evaluated and/or physical exam. Thus, Physical exam could not be obtained. Discharge Plan - Follow Up Plan Condition: UNKNOWN Disposition: AGAINST MEDICAL ADVICE <Kilo Haines - Last Filed: 08/13/18 18:27> Provider - Provider Date of Admission: 08/12/18 20:55 Attending physician: Russ Molina MD Consults: 08/12/18 23:05 Cardiology Consult Routine Comment: Consulting Provider: Kaylene Fischer Consulting Physician: Kaylene Fischer Reason for Consult: chest pain r/o acs, hx of cocaine abuse/heroine abuse 08/12/18 23:07 Psychiatry Consult Routine Comment: Consulting Provider: Veronika Yi Consulting Physician: Veronika Yi Reason for Consult: hx of heroin abuse, depression, bipolar disorder Hospital Course - Lab Results Lab Results: Most Recent Lab Values WBC 6.9 K/uL (4.8-10.8) 08/13/18 06:23 RBC 4.23 Mil/uL (4.40-5.90) L 08/13/18 06:23 Hgb 12.9 g/dL (12.0-18.0) 08/13/18 06:23 Hct 37.1 % (35.0-51.0) 08/13/18 06:23 MCV 87.5 fL (80.0-94.0) 08/13/18 06:23 MCH 30.6 pg (27.0-31.0) 08/13/18 06:23 MCHC 34.9 g/dL (33.0-37.0) 08/13/18 06:23 RDW 13.8 % (11.5-14.5) 08/13/18 06:23 Plt Count 247 K/uL (130-400) 08/13/18 06:23 MPV 7.7 fL (7.2-11.7) 08/13/18 06:23 Neut % (Auto) 50.4 % (50.0-75.0) 08/13/18 06:23 Lymph % (Auto) 32.3 % (20.0-40.0) 08/13/18 06:23 [place] % (Auto) 11.5 % (0.0-10.0) H 08/13/18 06:23 Eos % (Auto) 5.4 % (0.0-4.0) H 08/13/18 06:23 Baso % (Auto) 0.4 % (0.0-2.0) 08/13/18 06:23 Neut # (Auto) 3.5 K/uL (1.8-7.0) 08/13/18 06:23 Lymph # (Auto) 2.2 K/uL (1.0-4.3) 08/13/18 06:23 [place] # (Auto) 0.8 K/uL (0.0-0.8) 08/13/18 06:23 Eos # (Auto) 0.4 K/uL (0.0-0.7) 08/13/18 06:23 Baso # (Auto) 0.0 K/uL (0.0-0.2) 08/13/18 06:23 Sodium 141 mmol/L (132-148) 08/13/18 06:23 Potassium 4.0 mmol/L (3.6-5.2) 08/13/18 06:23 Chloride 104 mmol/L (98-107) 08/13/18 06:23 Carbon Dioxide 30 mmol/L (22-30) 08/13/18 06:23 Anion Gap 11 (10-20) 08/13/18 06:23 BUN 14 mg/dL (9-20) 08/13/18 06:23 Creatinine 0.8 mg/dL (0.8-1.5) 08/13/18 06:23 Est GFR ( Amer) > 60 08/13/18 06:23 Est GFR (Non-Af Amer) > 60 08/13/18 06:23 Random Glucose 90 mg/dL (75-110) 08/13/18 06:23 Hemoglobin A1c 5.7 % (4.2-6.5) 08/13/18 06:23 Calcium 8.8 mg/dl (8.6-10.4) 08/13/18 06:23 Phosphorus 3.8 mg/dL (2.5-4.5) 08/13/18 06:23 Magnesium 2.2 mg/dL (1.6-2.3) 08/13/18 06:23 Total Bilirubin 0.2 mg/dL (0.2-1.3) 08/13/18 06:23 AST 36 U/L (17-59) 08/13/18 06:23 ALT 49 U/L (21-72) 08/13/18 06:23 Alkaline Phosphatase 56 U/L (38-126) 08/13/18 06:23 Total Creatine Kinase 142 U/L (55-170) 08/13/18 02:56 CK-MB (Mass) 1.71 ng/mL (0.0-3.38) 08/13/18 02:56 Troponin I < 0.0120 ng/mL (0.00-0.120) 08/13/18 02:56 Total Protein 5.8 g/dL (6.3-8.3) L 08/13/18 06:23 Albumin 3.4 g/dL (3.5-5.0) L 08/13/18 06:23 Globulin 2.4 gm/dL (2.2-3.9) 08/13/18 06:23 Albumin/Globulin Ratio 1.4 (1.0-2.1) 08/13/18 06:23 Triglycerides 57 mg/dL (0-149) 08/13/18 06:23 Cholesterol 111 mg/dL (0-199) 08/13/18 06:23 LDL Cholesterol Direct 78 mg/dL (0-129) 08/13/18 06:23 HDL Cholesterol 35 mg/dL (30-70) 08/13/18 06:23 TSH 3rd Generation 1.59 mIU/L (0.46-4.68) 08/13/18 06:23 Urine Opiates Screen Positive (NEGATIVE) H 08/12/18 19:40 Urine Methadone Screen Negative (NEGATIVE) 08/12/18 19:40 Ur Barbiturates Screen Negative (NEGATIVE) 08/12/18 19:40 Ur Phencyclidine Scrn Negative (NEGATIVE) 08/12/18 19:40 Ur Amphetamines Screen Negative (NEGATIVE) 08/12/18 19:40 U Benzodiazepines Scrn Negative (NEGATIVE) 08/12/18 19:40 U Oth Cocaine Metabols Positive (NEGATIVE) H 08/12/18 19:40 U Cannabinoids Screen Negative (NEGATIVE) 08/12/18 19:40 Attending/Attestation - Attestation I have personally seen and examined this patient.: Yes I have fully participated in the care of the patient.: Yes I have reviewed all pertinent clinical information, including history, physical exam and plan: Yes Notes (Text): 08/13/18 18:25 Medical attending: I was notified that the patient eloped sometime this morning. The nursing staff reported that they paged the house doctor to come do the AMA papers - however this morning there were TWO back to back CODE Hearts in the ER. Patient left before me or anyone of the residents were able to see them Kilo Haines
== END 2018-08-13 08:15 | disposition left against medical advice (07) ==
LOC: C.ER 17:08 → C.9E 20:55 → C.6T 21:50
PROVIDERS: ADMIT Family Medicine; ATTEND Family Medicine
DX: R07.9 Chest pain, unspecified (principal); R20.0 Anesthesia of skin; F17.210 Nicotine dependence, cigarettes, uncomplicated; F41.9 Anxiety disorder, unspecified; F32.9 Major depressive disorder, single episode, unspecified; F14.10 Cocaine abuse, uncomplicated; F11.10 Opioid abuse, uncomplicated
CPT/HCPCS: 36415; 71046; 80053; 80061; 80324; 80345; 80346; 80349; 80353; 80358; 80361; 82550; 82553; 83036; 83735; 83992; 84100; 84443; 84484; 85025; 93005; 99285; G0378